=== PATIENT | female | born 1980 | race African-American/Black ===

== ENCOUNTER 2018-09-18 13:13 | Emergency (ER) | payer OTHER ==
[~2018-09-18] VITALS: Ht 165.1 cm; Wt 90.7 kg
--- OUTSIDE RECORDS SUMMARY | 2018-09-18 13:16 | XMS REPORT | Clinical Summary ---
Author Author [facility] Address Unknown Phone Unavailable Care Team Providers Care [facility] Pharmacy Technician Name Role Phone Sharpless PCP Allergies Comments Active Allergy Reactions Severity Noted Date Morphine Swelling 05/23/2014 Unknown reactions Sulfa (Sulfonamide 05/23/2014 Antibiotics) Medications No known medications Active Problems Problem Noted Date Research study patient 07/19/2016 Social History Date Tobacco Use Types Packs/Day Years Used Never Smoker Smokeless Tobacco: Never Used Alcohol Use Drinks/Week oz/Week Comments No Sex Assigned at Date Recorded Not on file Industry Job Start Date Occupation Not on file Not on file Not on file Travel End Travel History Travel Start No recent travel history available. Last Filed Vital Signs Not on file Plan of Treatment Not on file Results Not on fileafter 09/17/2017
--- OUTSIDE RECORDS SUMMARY | 2018-09-18 13:17 | XMS REPORT | Continuity of Care Document ---
Author Author [facility] Interface Address Unknown Phone Unavailable Problems Problem Status Onset Date Classification Date Reported Comments Source Z01.419 Active 03/12/2018 [facility] Discharge Diagnosis: Acute diarrhea 04/24/2017 04/27/2017 [facility] WEAKNESS Active 04/24/2017 [facility] Discharge Diagnosis: Chest pain at rest 10/14/2015 10/17/2015 [facility] CHEST PAIN Active 10/14/2015 [facility] DESIRED STERILIZATION Active 02/09/2015 [facility] LEAKING FLUID Active 12/23/2014 [facility] INCREASED BLOOD PRESSURES Active 12/22/2014 [facility] 6/2 ; 12/31/14 ; 39 WEEKS Active 12/22/2014 [facility] CTX Active 12/19/2014 [facility] SWELLING Active 12/16/2014 [facility] AMA Active 09/06/2014 [facility] ABDOMINAL PAIN, DECREASED MOVEMENT Active 09/06/2014 [facility] LOWER ABDOMINAL CRAMPS Active 05/21/2014 [facility] Discharge Diagnosis: , threatened 05/13/2014 05/16/2014 [facility] Discharge Diagnosis: Currently 05/13/2014 05/16/2014 [facility] Discharge Diagnosis: Abdominal pain in female patient 05/13/2014 05/16/2014 [facility] Discharge Diagnosis: Pelvic cramping 05/13/2014 05/16/2014 [facility] CRAMPS Active 05/12/2014 [facility] Discharge Diagnosis: Bacterial vaginitis 05/08/2014 05/11/2014 [facility] VAG DISCHARGE Active 05/08/2014 [facility] Discharge Diagnosis: Urinary tract infection 05/07/2014 05/10/2014 [facility] ABDOMINAL PAIN Active 05/07/2014 [facility] Resolved 09/25/2012 Problem 03/26/2018 [facility] Abdominal pain Resolved 02/24/2012 Problem 03/26/2018 [facility] HIGH BLOOD PRESSURE Active 10/06/1941 [facility] Chest pain Active Problem 03/26/2018 [facility] HTN - Hypertension Resolved Problem 03/26/2018 [facility] Gestational hypertension Active Problem 03/26/2018 [facility] Final: Spotting Complicating , Antepartum Condition or Complication 10/18/2014 [facility] Final: Other Current Conditions Classifiable Elsewhere, Complicating , Childbirth, or the [place], Antepartum Condition or Complication 10/18/2014 [facility] Final: Backache, Unspecified 10/18/2014 [facility] Final: Headache 10/18/2014 [facility] THREAT LABOR NEC-ANTEPAR Active [facility] Medications Medication Details Route Status Patient Instructions Ordering Provider Order Date Source meclizine 12.5 mg oral tablet 12.5 mg=1 tab, PO, TID, PRN Dizziness, X 10 day, # 30 tab, 0 Refill(s) Active 10/14/2015 [facility] Famotidine 20 MG Oral Tablet [Pepcid] 20 mg=1 tab, PO, BID, # 60 tab, 0 Refill(s) Active 10/14/2015 [facility] Aspirin 325 mg, Route: PO, Drug form: TAB, ONCE, Dosing Weight 81.818, kg, Priority: STAT, Start date: 10/14/15 11:12:00, Stop date: 10/14/15 11:12:00 Inactive 10/14/2015 [facility] GI cocktail 30 mL, Route: PO, Dosing Weight 81.818, kg, ONCE, STAT, Start date: 10/14/15 9:43:00, Stop date: 10/14/15 9:43:00 Inactive 10/14/2015 [facility] Oxycodone Hydrochloride 5 MG Oral Tablet 5 mg, Route: PO, Drug form: TAB, ONCE, Dosing Weight 81.818, kg, Start date: 03/05/15 11:19:00, Stop date: 03/05/15 11:19:00 Inactive 03/05/2015 [facility] ibuprofen 800 mg oral tablet 800 mg=1 tab, PO, Q8H, PRN Pain, Take with food, # 30 tab, 0 Refill(s)Special Instructions: Take with food Active 03/05/2015 [facility] Acetaminophen 300 MG / Codeine Phosphate 30 MG Oral Tablet [Tylenol with Codeine #3] 1 - 2 tab, PO, Q4H, PRN Pain, X 2 week, # 24 tab, 0 Refill(s) Active 03/05/2015 [facility] Ibuprofen 0 Refill(s) Active 03/05/2015 [facility] Metronidazole 500 MG Oral Tablet 500 mg=1 tab, PO, Q8H, # 30 tab, 0 Refill(s) Active 02/27/2015 [facility] Multivitamins oral tablet 1 tab, Route: PO, Drug Form: TAB, Dosing Weight 88.636, kg, Daily, Start date: 12/24/14 9:00:00, Duration: 30 day, Stop date: 01/22/15 9:00:00 No Longer Active 12/24/2014 [facility] ferrous sulfate 325 MG Oral Tablet 325 mg=1 tab, PO, TID, # 90 tab, 0 Refill(s) Active 12/24/2014 [facility] Docusate Sodium 100 MG Oral Capsule 100 mg=1 cap, PO, BID, Constipation, # 60 cap, 0 Refill(s) Active 12/24/2014 [facility] ibuprofen 800 mg oral tablet 800 mg=1 tab, PO, Q8H, Pain Score 6-10, # 30 tab, 0 Refill(s) Active 12/24/2014 [facility] Tramadol 50 mg, 1 tab, Route: PO, Drug form: TAB, Q4H, Dosing Weight 88.636, kg, PRN Pain Score 4-6, Start date: 12/23/14 22:43:00, Duration: 30 day, Stop date: 01/22/15 22:42:00Notes: Not to exceed 400mg/day. (Same As: Ultram) No Longer Active 12/24/2014 [facility] M-M-R II 0.5 mL, Route: SUB-Q, Drug Form: PDR/INJ, Dosing Weight 88.636, kg, ONCALL, Give only if patient rubella non-immune, Start date: 12/23/14 12:00:00, Duration: 1 doses or times, Stop date: 12/24/14 0:00:00Notes: (Same as: M-M-R II) (fvlafml-hbvjw-mntbgkg virus vaccine 0.5 ml INJ VL) GIVE PRIOR TO DISCHARGE No Longer Active 12/23/2014 [facility] Acetaminophen 325 MG / Hydrocodone Bitartrate 10 MG Oral Tablet 1 tab, Route: PO, Drug Form: TAB, Dosing Weight 88.636, kg, Q4H, PRN Pain Score 7-10, Start date: 12/23/14 11:23:00, Duration: 30 day, Stop date: 01/22/15 11:22:00Notes: Do not exceed 4gm/day of acetaminophen. (Same as: Okarche 325/10) Inactive 12/23/2014 [facility] Acetaminophen 325 MG / Hydrocodone Bitartrate 5 MG Oral Tablet 1 tab, Route: PO, Drug Form: TAB, Dosing Weight 88.636, kg, Q4H, PRN Pain Score 4-6, Start date: 12/23/14 11:23:00, Duration: 30 day, Stop date: 01/22/15 11:22:00Notes: (Same as: Okarche 325/5) Do not exceed 4gm/day of acetaminophen. Inactive 12/23/2014 [facility] Acetaminophen 650 mg, 2 tab, Route: PO, Drug form: TAB, Q4H, Dosing Weight 88.636, kg, PRN Headache 1-3, Start date: 12/23/14 11:23:00, Duration: 30 day, Stop date: 01/22/15 11:22:00Notes: Do not exceed 4 gm/day. (Same as: Tylenol) Inactive 12/23/2014 [facility] Ibuprofen 800 mg, 1 tab, Route: PO, Drug form: TAB, Q8H, Dosing Weight 88.636, kg, PRN Pain Score 6-10, Start date: 12/23/14 11:23:00, Duration: 30 day, Stop date: 01/22/15 11:22:00Notes: (Same as: Motrin) "Do Not Crush" Take with food. No Longer Active 12/23/2014 [facility] Lactated Ringers IV 1,000 mL 1,000 mL, Rate: 100 ml/hr, Infuse over: 10 hr, Route: IV, Dosing Weight 88.636 kg, Total Volume: 1,000, Start date: 12/23/14 11:23:00, Duration: 30 day, Stop date: 01/22/15 11:22:00 No Longer Active 12/23/2014 [facility] Oxytocin 0.03 UNT/ML Injectable Solution 30 unit, 500 mL, Rate: 42 ml/hr, Infuse over: 11.9 hr, Dosing Weight 88.636, kg, Route: IV, Total Volume: 500 mL, Start date: 12/23/14 11:23:00, Duration: 2 doses or times, Stop date: 12/24/14 11:10:00, Replace Every: 11.9 hrNotes: (Same as: OXYTOCIN- D5LR) No Longer Active 12/23/2014 [facility] Methylergonovine 0.2 mg, 1 mL, Route: IM, Drug form: INJ, PRN, Dosing Weight 88.636, kg, PRN Other -See Comment, Start date: 12/23/14 11:23:00, Duration: 30 day, Stop date: 01/22/15 12:22:00Notes: (Same as:Methergine) No Longer Active 12/23/2014 [facility] Benzocaine 200 MG/ML Topical [place] [Dermoplast] 1 spray, Route: TOP, PRN, Drug form: SPRY, PRN Irritation, Start date: 12/23/14 11:23:00, Duration: 30 day, Stop date: 01/22/15 12:22:00Notes: (Same As: Dermoplast) FOR EXTERNAL USE ONLY No Longer Active 12/23/2014 [facility] zolpidem 5 mg, 1 tab, Route: PO, Drug form: TAB, Bedtime, Dosing Weight 88.636, kg, PRN Sleep, Start date: 12/23/14 11:23:00, Duration: 30 day, Stop date: 01/22/15 11:22:00Notes: (Same As: Ambien) No Longer Active 12/23/2014 [facility] Bisacodyl 15 mg, 3 tab, Route: PO, Drug form: ECTAB, Daily, Dosing Weight 88.636, kg, PRN Other -See Comment, Start date: 12/23/14 11:23:00, Duration: 30 day, Stop date: 01/22/15 11:22:00Notes: (Same As: Dulco lax, Correctol) (Do Not Crush) "Do Not Crush" No Longer Active 12/23/2014 [facility] lanolin topical 1 appl, Route: TOP, PRN, Drug form: OINT, PRN Other -See Comment, Start date: 12/23/14 11:23:00, Duration: 30 day, Stop date: 01/22/15 12:22:00Notes: (Same as:Lanolin) No Longer Active 12/23/2014 [facility] Docusate 100 mg, 1 cap, Route: PO, Drug form: CAP, BID, Dosing Weight 88.636, kg, PRN Constipation, Start date: 12/23/14 11:23:00, Duration: 30 day, Stop date: 01/22/15 11:22:00Notes: (Same as: Colace) (Do Not Crush) No Longer Active 12/23/2014 [facility] Ondansetron 4 mg, 2 mL, Route: IVP, Drug form: INJ, Q8H, Dosing Weight 88.636, kg, PRN Nausea & Vomiting, Start date: 12/23/14 11:23:00, Duration: 30 day, Stop date: 01/22/15 11:22:00Notes: (Same as: Zofran) No Longer Active 12/23/2014 [facility] Ofirmev 1,000 mg, 100 mL, Route: IV, Drug form: INJ, Q6H, Dosing Weight 88.636, kg, for > or=50 kg, Priority: STAT, Start date: 12/23/14 8:13:00, Duration: 30 day, Stop date: 01/22/15 6:00:00Notes: Infuse over 15 minutes Do not exceed 4gm/day of acetaminophen Inactive 12/23/2014 [facility] Ofirmev 1,000 mg, Route: IV, Drug form: INJ, Q6H, Dosing Weight 88.636, kg, PRN Pain Score 7-10, for > or=50 kg, Start date: 12/23/14 8:12:00, Duration: 30 day, Stop date: 01/22/15 8:11:00 Inactive 12/23/2014 [facility] Carboprost 250 microgram, 1 mL, Route: IM, Drug form: INJ, ONCALL, Dosing Weight 88.636, kg, Start date: 12/23/14 2:00:00, Duration: 30 day, Stop date: 01/22/15 2:59:00Notes: (Same As: Hemabate) Inactive 12/23/2014 [facility] Citric Acid / sodium citrate 30 mL, Route: PO, Drug Form: SOLN, Dosing Weight 88.636, kg, ONCALL, Start date: 12/23/14 2:00:00, Duration: 30 day, Stop date: 01/22/15 2:59:00Notes: (Same As: Bicitra, Cytra-2) Sodium citrate-citric acid (500-334 mg/5 mL): 1 mL contains sodium 1 mEq/mL and bicarbonate 1 mEq/mL Inactive 12/23/2014 [facility] Methylergonovine 0.2 mg, 1 mL, Route: IM, Drug form: INJ, ONCALL, Dosing Weight 88.636, kg, Start date: 12/23/14 2:00:00, Duration: 30 day, Stop date: 01/22/15 2:59:00Notes: (Same as:Methergine) Inactive 12/23/2014 [facility] Misoprostol 1,000 microgram, 5 tab, Route: SD, Drug form: TAB, ONCALL, Dosing Weight 88.636, kg, Start date: 12/23/14 2:00:00, Duration: 1 doses or timesNotes: (Same as:Cytotec) Take with food Inactive 12/23/2014 [facility] Famotidine 20 mg, 2 mL, Route: IVP, Drug form: INJ, ONCALL, Dosing Weight 88.636, kg, Start date: 12/23/14 2:00:00, Duration: 30 day, Stop date: 01/22/15 2:59:00Notes: (Same as: Pepcid) Can be dilute in 5-10cc NS IVP: Slow IV push over at least 2 minutes. Inactive 12/23/2014 [facility] Oxytocin 0.03 UNT/ML Injectable Solution 30 unit, 500 mL, Rate: Titrate, Dosing Weight 88.636, kg, Route: IV, Total Volume: 500 mL, Start date: 12/23/14 1:03:00, Duration: 2 day, Stop date: 12/25/14 1:02:00, Replace Every: 24 hrNotes: (Same as: OXYTOCIN-D5LR) Inactive 12/23/2014 [facility] Calcium Chloride 0.0014 MEQ/ML / Potassium Chloride 0.004 MEQ/ML / Sodium Chloride 0.103 MEQ/ML / Sodium Lactate 0.028 MEQ/ML Injectable Solution 1,000 mL, 1,000 ml/hr, Infuse Over: 1 hr, Route: IV, 1,000, Drug form: INJ, ONCE, Dosing Weight 88.636 kg, Start date: 12/23/14 1:03:00, Stop date: 12/23/14 1:03:00, Bolus for regional anesthesia per unit protocol Inactive 12/23/2014 [facility] Lactated Ringers IV 1,000 mL 1,000 mL, Rate: 125 ml/hr, Infuse over: 8 hr, Route: IV, Dosing Weight 88.636 kg, Total Volume: 1,000, Start date: 12/23/14 1:03:00, Duration: 30 day, Stop date: 01/22/15 1:02:00 Inactive 12/23/2014 [facility] Lidocaine Hydrochloride 10 MG/ML Injectable Solution 0.25 mL, Route: INTRADERM, Drug Form: INJ, Dosing Weight 88.636, kg, PRN, PRN Other -See Comment, Start date: 12/23/14 1:03:00, Duration: 30 day, Stop date: 01/22/15 2:02:00Notes: (Same as: Xylocaine) Inactive 12/23/2014 [facility] Terbutaline 0.25 mg, 0.25 mL, Route: SUB-Q, Drug form: INJ, PRN, Dosing Weight 88.636, kg, PRN Other -See Comment, Start date: 12/23/14 1:03:00, Duration: 1 doses or times, Stop date: Limited # of timesNotes: DO NOT USE IN TRACK OILER AREA (Same As: Brethine) Inactive 12/23/2014 [facility] Ondansetron 4 mg, 2 mL, Route: IVP, Drug form: INJ, Q8H, Dosing Weight 88.636, kg, PRN Nausea & Vomiting, Start date: 12/23/14 1:03:00, Duration: 30 day, Stop date: 01/22/15 1:02:00Notes: (Same as: Zofran) Inactive 12/23/2014 [facility] Butorphanol 2 mg, 1 mL, Route: IVP, Drug form: INJ, Q2H, Dosing Weight 88.636, kg, PRN Pain Score 6-10, Start date: 12/23/14 1:03:00, Duration: 30 day, Stop date: 01/22/15 1:02:00Notes: (Same As: Stadol) Inactive 12/23/2014 [facility] 1 oral capsule 0 Refill(s) Active 12/20/2014 [facility] Tylenol 1,000 mg, PO, PRN, 0 Refill(s) Inactive 12/16/2014 [facility] Nitrofurantoin 100 MG Oral Capsule [Macrobid] 100 mg=1 cap, PO, BID, # 14 cap, 0 Refill(s) Active 10/15/2014 [facility] LR IV 1,000 mL 1,000 mL, Rate: 125 ml/hr, Infuse over: 8 hr, Route: IV, Dosing Weight 127.273 kg, Total Volume: 1,000, Start date: 09/06/14 18:33:00, Duration: 30 day, Stop date: 10/06/14 18:32:00 Inactive 09/06/2014 [facility] 1 oral capsule 0 Refill(s) Active 09/06/2014 [facility] Promethazine Hydrochloride 25 MG Oral Tablet [Phenergan] 25 mg=1 tab, PO, Q6H, Nausea, # 30 tab, 0 Refill(s) Active 05/13/2014 [facility] Dicyclomine Hydrochloride 20 MG Oral Tablet [Bentyl] 20 mg=1 tab, PO, QID, # 30 tab, 0 Refill(s) Active 05/13/2014 [facility] Promethazine 25 mg, Route: IVPB, ONCE, Dosing Weight 75, kg, Priority: STAT, Start date: 05/13/14 0:37:00, Stop date: 05/13/14 0:37:00 Inactive 05/13/2014 [facility] Dicyclomine 20 mg, Route: IM, ONCE, Dosing Weight 75, kg, Priority: STAT, Start date: 05/13/14 0:36:00, Stop date: 05/13/14 0:36:00 Inactive 05/13/2014 [facility] Metronidazole 500 MG Oral Tablet [Flagyl] 500 mg=1 tab, PO, Q12H, # 14 tab, 0 Refill(s) Active 05/08/2014 [facility] Zofran ODT 4 mg, Route: PO, Drug form: TABDIS, ONCE, Dosing Weight 75, kg, Priority: STAT, Start date: 05/08/14 14:21:00, Stop date: 05/08/14 14:21:00 Inactive 05/08/2014 [facility] Acetaminophen 325 MG / Hydrocodone Bitartrate 5 MG Oral Tablet [Okarche 5/325] 1 tab, Route: PO, Dosing Weight 75, kg, ONCE, Start date: 05/08/14 14:21:00, Stop date: 05/08/14 14:21:00 Inactive 05/08/2014 [facility] Ondansetron 4 MG Disintegrating Tablet [Zofran] 4 mg=1 tab, PO, BID, Nausea and Vomiting, Dissolve tab under tongue, # 10 tab, 0 Refill(s)Special Instructions: Dissolve tab under tongue Active 05/07/2014 [facility] cetirizine hydrochloride 10 MG Oral Tablet [Zyrtec] 10 mg=1 tab, PO, Daily, # 10 tab, 0 Refill(s) Active 05/07/2014 [facility] Nitrofurantoin 100 MG Oral Capsule [Macrobid] 100 mg=1 cap, PO, BID, # 14 tab, 0 Refill(s) Active 05/07/2014 [facility] Benadryl 25 mg, Route: IVP, ONCE, Dosing Weight 75, kg, Priority: STAT, Start date: 05/07/14 11:38:00, Stop date: 05/07/14 11:38:00 Inactive 05/07/2014 [facility] Pepcid 20 mg, 2 mL, Route: IV, Drug form: INJ, ONCE, Dosing Weight 75, kg, Start date: 05/07/14 11:38:00, Stop date: 05/07/14 11:38:00Notes: (Same as: Pepcid) Can be dilute in 5-10cc NS IVP: Slow IV push o liam at least 2 minutes. Inactive 05/07/2014 [facility] Famotidine 20 mg, Route: IV, ONCE, Dosing Weight 75, kg, Priority: STAT, Start date: 05/07/14 11:34:00, Stop date: 05/07/14 11:34:00 Inactive 05/07/2014 [facility] Benadryl 25 mg, 0.5 mL, Route: IVP, Drug form: INJ, ONCE, Dosing Weight 75, kg, PRN Allergic reaction, Start date: 05/07/14 11:34:00Notes: (Same as: Benadryl) Inactive 05/07/2014 [facility] Morphine 4 mg, Route: IVP, ONCE, Dosing Weight 75, kg, Priority: STAT, Start date: 05/07/14 9:39:00, Stop date: 05/07/14 9:39:00 Inactive 05/07/2014 [facility] Zofran 4 mg, 2 mL, Route: IVP, Drug form: INJ, ONCE, Dosing Weight 75, kg, Priority: STAT, Start date: 05/07/14 8:51:00, Stop date: 05/07/14 8:51:00Notes: (Same as: Zofran) Inactive 05/07/2014 [facility] Sodium Chloride 0.154 MEQ/ML Injectable Solution 1,000 mL, 1,000 ml/hr, Infuse Over: 1 hr, Route: IV, 1,000, Drug form: INJ, ONCE, Priority: STAT, Dosing Weight 75 kg, Start date: 05/07/14 8:51:00, Duration: 1 doses or times, Stop date: 05/07/14 8:51:00 Inactive 05/07/2014 [facility] Allergies, Adverse Reactions, Alerts Substance Category Reaction Severity Reaction type Status Date Reported Comments Source morphine Assertion Drug allergy Active [facility] sulfa drugs Assertion Drug allergy Active [facility] Immunizations Immunization Date Given Site Status Last Updated Comments Source diphtheria/pertussis, acel/tetanus adult 12/25/2014 Right Deltoid completed [facility] Results Order Name Results Value Reference Range Date Interpretation Comments Source Breast Mammo Scrn TOBY incl CAD MA Breast Mammo Scrn TOBY incl CAD MA BILATERAL FIRST EVER DIGITAL SCREENING MAMMOGRAM WITH CAD: 03/23/2018 CLINICAL: /Routine. Current study was evaluated with a Computer Aided Detection (CAD) system. COMPARISON:There are no comparison films available as this is the patient's baseline mammogram. TECHNIQUE: Mammographic views were obtained using digital acquisition. Bookmate[employer] Version 1.3 was utilized for computer aided detection. FINDINGS: The tissue of both breasts is heterogeneously dense, which could obscure detection of small masses. No significant masses, calcifications, or other findings are seen in either breast. IMPRESSION: NEGATIVE RECOMMENDATION:There is no mammographic evidence of malignancy. A 1 year screening mammogram is recommended.(03/24/2019) This exam was interpreted at [id number] for [facility] [place][note 2]. Gulshan Jang M.D. jt/penrad:03/26/2018 09:52:39 Deputy Assessor(s): Daly Leigh, RT(R)(M), [facility] letter sent: BI-RADS 1/2 Mammogram BI-RADS: 1 Negative 03/23/2018 - - Read by: Gulshan Jang MD Dictated Date/time: 03/26/18 09:52 Electronically Signed by: Gulshan Jang MD 03/26/18 09:52 FINAL REPORT [facility] URINE AND STOOL UA Leuk Est Trace *ABN* (04/24/17 5:20 PM) Negative 04/24/2017 [facility] URINE AND STOOL UA Urobilinogen 0.2 EU/dL 0.1 - 1.0 04/24/2017 [facility] URINE AND STOOL UA Bili Negative *NA* (04/24/17 5:20 PM) Negative 04/24/2017 [facility] URINE AND STOOL UA Blood Negative (04/24/17 5:20 PM) Negative 04/24/2017 [facility] URINE AND STOOL UA Nitrite Negative (04/24/17 5:20 PM) Negative 04/24/2017 [facility] URINE AND STOOL UA Glucose Negative (04/24/17 5:20 PM) Negative 04/24/2017 [facility] URINE AND STOOL UA Protein Negative (04/24/17 5:20 PM) Negative 04/24/2017 [facility] URINE AND STOOL UA pH 6.0 5.0 - 8.0 04/24/2017 [facility] URINE AND STOOL UA Spec Grav 1.015 <=1.030 04/24/2017 [facility] URINE AND STOOL UA Turbidity Clear (04/24/17 5:20 PM) Clear 04/24/2017 [facility] URINE AND STOOL UA Color Yellow *NA* (04/24/17 5:20 PM) Yellow 04/24/2017 [facility] URINE AND STOOL UA Ketones Negative *NA* (04/24/17 5:20 PM) Negative 04/24/2017 [facility] URINE AND STOOL UA Amorph [place] Occasional /HPF None Seen /HPF 04/24/2017 [facility] URINE AND STOOL UA Bacteria Few /HPF None Seen /HPF 04/24/2017 [facility] URINE AND STOOL UA RBC None Seen (04/24/17 5:20 PM) 0 - 2 04/24/2017 [facility] URINE AND STOOL UA WBC 3-5 /HPF None Seen /HPF 04/24/2017 [facility] URINE AND STOOL UA Sq Epi Few /LPF Few /LPF 04/24/2017 [facility] URINE CHEM U Preg Negative (04/24/17 5:20 PM) Negative 04/24/2017 [facility] CHEM PANEL B/C Ratio 7 6 - 25 04/24/2017 [facility] CHEM PANEL AGAP 13.8 meq/L 10.0 - 20.0 04/24/2017 [facility] CHEM PANEL Globulin 4.2 g/dL 2.7 - 4.2 04/24/2017 [facility] CHEM PANEL A/G Ratio 0.9 0.7 - 1.6 04/24/2017 [facility] CHEM PANEL eGFR 101 mL/min/1.73m2 04/24/2017 Result Comment: The eGFR is calculated using the CKD-EPI formula. In most young, healthy individuals the eGFR will be >90 mL/min/1.73m2. The eGFR declines with age. An eGFR of 60-89 may be normal in some populations, particularly the elderly, for whom the CKD-EPI formula has not been extensively validated. Use of the eGFR is not recommended in the following populations: Individuals with unstable creatinine concentrations, including patients and those with serious co-morbid conditions. Patients with extremes in muscle mass or diet. The data above are obtained from the National Kidney Disease Education Program (NKDEP) which additionally recommends that when the eGFR is used in patients with extremes of body mass index for purposes of drug dosing, the eGFR should be multiplied by the estimated BMI. [facility] CHEM PANEL Sodium Lvl 138 meq/L 135 - 145 04/24/2017 [facility] CHEM PANEL Chloride Lvl 104 meq/L 95 - 109 04/24/2017 [facility] CHEM PANEL Potassium Lvl 3.8 meq/L 3.5 - 5.1 04/24/2017 [facility] CHEM PANEL Glucose Lvl 90 mg/dL 70 - 99 04/24/2017 [facility] CHEM PANEL Creatinine Lvl 0.84 mg/dL 0.50 - 1.40 04/24/2017 [facility] CHEM PANEL BUN 6 mg/dL 7 - 22 04/24/2017 [facility] CHEM PANEL CO2 24 meq/L 24 - 32 04/24/2017 [facility] CHEM PANEL Calcium Lvl 8.7 mg/dL 8.5 - 10.5 04/24/2017 [facility] CHEM PANEL Bili Total 0.5 mg/dL 0.2 - 1.3 04/24/2017 [facility] CHEM PANEL AST 13 unit/L 0 - 37 04/24/2017 [facility] CHEM PANEL Alk Phos 62 unit/L 39 - 136 04/24/2017 [facility] CHEM PANEL Total Protein 8.0 g/dL 6.4 - 8.4 04/24/2017 [facility] CHEM PANEL Albumin Lvl 3.8 g/dL 3.5 - 5.0 04/24/2017 [facility] CHEM PANEL ALT 13 unit/L 0 - 65 04/24/2017 [facility] HEMATOLOGY Monocytes 6.7 % 2.0 - 12.0 04/24/2017 [facility] HEMATOLOGY Eosinophils 1.0 % 0.0 - 4.0 04/24/2017 [facility] HEMATOLOGY Segs 51.0 % 45.0 - 75.0 04/24/2017 [facility] HEMATOLOGY Lymphocytes 40.4 % 20.0 - 40.0 04/24/2017 [facility] HEMATOLOGY Monocytes # 0.4 K/CMM 0.0 - 0.8 04/24/2017 [facility] HEMATOLOGY Basophils 0.9 % 0.0 - 1.0 04/24/2017 [facility] HEMATOLOGY Eosinophils # 0.1 K/CMM 0.0 - 0.5 04/24/2017 [facility] HEMATOLOGY Microcyte 2+ *ABN* (04/24/17 3:37 PM) None Seen 04/24/2017 [facility] HEMATOLOGY Lymphocytes # 2.2 K/CMM 1.0 - 5.5 04/24/2017 [facility] HEMATOLOGY Segs-Bands # 2.8 K/CMM 1.5 - 8.1 04/24/2017 [facility] HEMATOLOGY MPV 7.2 fL 7.4 - 10.4 04/24/2017 [facility] HEMATOLOGY MCHC 33.7 g/dL 32.0 - 36.0 04/24/2017 [facility] HEMATOLOGY RDW 15.0 % 11.5 - 14.5 04/24/2017 [facility] HEMATOLOGY Platelet 345 K/CMM 133 - 450 04/24/2017 [facility] HEMATOLOGY MCV 73.5 fL 80.0 - 98.0 04/24/2017 [facility] HEMATOLOGY MCH 24.8 pg 27.0 - 31.0 04/24/2017 [facility] HEMATOLOGY Hgb 12.9 g/dL 12.0 - 16.0 04/24/2017 [facility] HEMATOLOGY Hct 38.2 % 36.0 - 48.0 04/24/2017 [facility] HEMATOLOGY WBC 5.5 K/CMM 3.7 - 10.4 04/24/2017 [facility] HEMATOLOGY RBC 5.20 M/CMM 4.20 - 5.40 04/24/2017 [facility] CARDIAC ENZYMES Troponin-I null 0.00 - 0.40 10/14/2015 [facility] CARDIAC ENZYMES Troponin-I null 0.00 - 0.40 10/14/2015 [facility] CHEM PANEL eGFR 98 mL/min/1.73m2 10/14/2015 Result Comment: The eGFR is calculated using the CKD-EPI formula. In most young, healthy individuals the eGFR will be >90 mL/min/1.73m2. The eGFR declines with age. An eGFR of 60-89 may be normal in some populations, particularly the elderly, for whom the CKD-EPI formula has not been extensively validated. Use of the eGFR is not recommended in the following populations: Individuals with unstable creatinine concentrations, including patients and those with serious co-morbid conditions. Patients with extremes in muscle mass or diet. The data above are obtained from the National Kidney Disease Education Program (NKDEP) which additionally recommends that when the eGFR is used in patients with extremes of body mass index for purposes of drug dosing, the eGFR should be multiplied by the estimated BMI. [facility] CHEM PANEL Potassium Lvl 3.8 meq/L 3.5 - 5.1 10/14/2015 [facility] CHEM PANEL CO2 27 meq/L 24 - 32 10/14/2015 [facility] CHEM PANEL Chloride Lvl 104 meq/L 95 - 109 10/14/2015 [facility] CHEM PANEL Calcium Lvl 9.1 mg/dL 8.5 - 10.5 10/14/2015 [facility] CHEM PANEL AGAP 10.8 meq/L 10.0 - 20.0 10/14/2015 [facility] CHEM PANEL BUN 10 mg/dL 7 - 22 10/14/2015 [facility] CHEM PANEL Glucose Lvl 95 mg/dL 70 - 99 10/14/2015 [facility] CHEM PANEL Creatinine Lvl 0.87 mg/dL 0.50 - 1.40 10/14/2015 [facility] CHEM PANEL Sodium Lvl 138 meq/L 135 - 145 10/14/2015 [facility] Chest 2 views DX Chest 2 views DX EXAM: XR CHEST 2 VIEWS DATE: 10/14/2015 at 0900 hours INDICATION: Shortness of Breath COMPARISON: Chest radiograph 04/28/2013 TECHNIQUE: Frontal and lateral chest radiographs DISCUSSION: No pulmonary or pleural based abnormality is identified. Pulmonary vascularity is normal. The cardiomediastinal silhouette is normal. No acute bony abnormality is identified. IMPRESSION: No acute cardiopulmonary abnormality identified. 10/14/2015 - - This report was dictated by a [employer] Instructor/Fellow. I have personally reviewed the images as well as the Resident's interpretation and agree with the findings. Read by: Eran Haley MD Resident: Eran Haley MD Dictated Date/time: 10/14/15 09:05 Electronically Signed by: Susy Trinidad MD 10/14/15 09:40 FINAL REPORT [facility] BLOOD BANK RESULTS Antibody Scrn Negative (03/05/15 6:58 AM) 03/05/2015 [facility] BLOOD BANK RESULTS ABO/Rh B POS 03/05/2015 [facility] HEMATOLOGY Monocytes # 0.2 K/CMM 0.0 - 0.8 03/05/2015 [facility] HEMATOLOGY Lymphocytes # 1.9 K/CMM 1.0 - 5.5 03/05/2015 [facility] HEMATOLOGY Basophils # 0.0 K/CMM 0.0 - 0.2 03/05/2015 [facility] HEMATOLOGY Basophils 0.7 % 0.0 - 1.0 03/05/2015 [facility] HEMATOLOGY Segs-Bands # 2.7 K/CMM 1.5 - 8.1 03/05/2015 [facility] HEMATOLOGY Eosinophils 1.1 % 0.0 - 4.0 03/05/2015 [facility] HEMATOLOGY Lymphocytes 39.6 % 20.0 - 40.0 03/05/2015 [facility] HEMATOLOGY Monocytes 3.6 % 2.0 - 12.0 03/05/2015 [facility] HEMATOLOGY Segs 55.0 % 45.0 - 75.0 03/05/2015 [facility] HEMATOLOGY Eosinophils # 0.1 K/CMM 0.0 - 0.5 03/05/2015 [facility] HEMATOLOGY MCHC 33.3 g/dL 32.0 - 36.0 03/05/2015 [facility] HEMATOLOGY RDW 12.6 % 11.5 - 14.5 03/05/2015 [facility] HEMATOLOGY Hct 41.1 % 36.0 - 48.0 03/05/2015 [facility] HEMATOLOGY MCV 85.1 fL 80.0 - 98.0 03/05/2015 [facility] HEMATOLOGY MPV 7.2 fL 7.4 - 10.4 03/05/2015 [facility] HEMATOLOGY Platelet 292 K/CMM 133 - 450 03/05/2015 [facility] HEMATOLOGY MCH 28.3 pg 27.0 - 31.0 03/05/2015 [facility] HEMATOLOGY Hgb 13.7 g/dL 12.0 - 16.0 03/05/2015 [facility] HEMATOLOGY RBC 4.83 M/CMM 4.20 - 5.40 03/05/2015 [facility] HEMATOLOGY WBC 4.9 K/CMM 3.7 - 10.4 03/05/2015 [facility] URINE CHEM U Preg Negative (03/05/15 6:58 AM) Negative 03/05/2015 [facility] BLOOD BANK RESULTS Antibody Scrn Negative (12/23/14 1:47 AM) 12/23/2014 [facility] BLOOD BANK RESULTS ABO/Rh B POS 12/23/2014 [facility] HEMATOLOGY Monocytes # 0.6 K/CMM 0.0 - 0.8 12/23/2014 [facility] HEMATOLOGY Lymphocytes # 2.3 K/CMM 1.0 - 5.5 12/23/2014 [facility] HEMATOLOGY Segs-Bands # 6.9 K/CMM 1.5 - 8.1 12/23/2014 [facility] HEMATOLOGY Basophils 0.4 % 0.0 - 1.0 12/23/2014 [facility] HEMATOLOGY Eosinophils 0.3 % 0.0 - 4.0 12/23/2014 [facility] HEMATOLOGY Monocytes 5.8 % 2.0 - 12.0 12/23/2014 [facility] HEMATOLOGY Lymphocytes 23.3 % 20.0 - 40.0 12/23/2014 [facility] HEMATOLOGY Segs 70.2 % 45.0 - 75.0 12/23/2014 [facility] HEMATOLOGY RDW 14.7 % 11.5 - 14.5 12/23/2014 [facility] HEMATOLOGY Platelet 294 K/CMM 133 - 450 12/23/2014 [facility] HEMATOLOGY MPV 7.6 fL 7.4 - 10.4 12/23/2014 [facility] HEMATOLOGY MCHC 34.2 g/dL 32.0 - 36.0 12/23/2014 [facility] HEMATOLOGY RBC 4.14 M/CMM 4.20 - 5.40 12/23/2014 [facility] HEMATOLOGY MCV 85.4 fL 80.0 - 98.0 12/23/2014 [facility] HEMATOLOGY MCH 29.2 pg 27.0 - 31.0 12/23/2014 [facility] HEMATOLOGY Hgb 12.1 g/dL 12.0 - 16.0 12/23/2014 [facility] HEMATOLOGY Hct 35.3 % 36.0 - 48.0 12/23/2014 [facility] HEMATOLOGY WBC 9.8 K/CMM 3.7 - 10.4 12/23/2014 [facility] IMMUNOLOGY Rubella IgG 221.2 [iU]/mL >=10.0 IU/mL 12/23/2014 1Interpretive Data: Reference Range: Immune >=10 IU/mL [facility] IMMUNOLOGY HIV. Negative *NA* (12/23/14 1:47 AM) Negative 12/23/2014 [facility] IMMUNOLOGY Hep Bs Ag Negative *NA* (12/23/14 1:47 AM) Negative 12/23/2014 [facility] IMMUNOLOGY Treponemal Scr Non Reactive *NA* (12/23/14 1:47 AM) Non Reactive 12/23/2014 [facility] URINE AND STOOL UA Urobilinogen <=1.0 mg/dL 0.1 - 1.0 09/06/2014 [facility] URINE AND STOOL UA WBC 1 /HPF 0 - 5 09/06/2014 [facility] URINE AND STOOL UA Mucus Few /LPF None Seen /LPF 09/06/2014 [facility] URINE AND STOOL UA Blood Negative (09/06/14 5:49 PM) Negative 09/06/2014 [facility] URINE AND STOOL UA Sq Epi Few /LPF Few /LPF 09/06/2014 [facility] URINE AND STOOL UA Nitrite Negative (09/06/14 5:49 PM) Negative 09/06/2014 [facility] URINE AND STOOL UA Bili Negative *NA* (09/06/14 5:49 PM) Negative 09/06/2014 [facility] URINE AND STOOL UA Leuk Est Negative (09/06/14 5:49 PM) Negative 09/06/2014 [facility] URINE AND STOOL UA Protein Negative mg/dL Negative mg/dL 09/06/2014 [facility] URINE AND STOOL UA Ketones 20 mg/dL Negative mg/dL 09/06/2014 [facility] URINE AND STOOL UA Glucose Negative mg/dL Negative mg/dL 09/06/2014 [facility] URINE AND STOOL UA Spec Grav 1.012 <=1.030 09/06/2014 [facility] URINE AND STOOL UA pH 5.0 5.0 - 8.0 09/06/2014 [facility] URINE AND STOOL UA Color Yellow *NA* (09/06/14 5:49 PM) Yellow 09/06/2014 [facility] URINE AND STOOL UA Turbidity Clear (09/06/14 5:49 PM) Clear 09/06/2014 [facility] CHEM PANEL eGFR 128 mL/min/1.73m2 05/13/2014 1Result Comment: The eGFR is calculated using the CKD-EPI formula. In most young, healthy individuals the eGFR will be >90 mL/min/1.73m2. The eGFR declines with age. An eGFR of 60-89 may be normal in some populations, particularly the elderly, for whom the CKD-EPI formula has not been extensively validated. Use of the eGFR is not recommended in the following populations: Individuals with unstable creatinine concentrations, including patients and those with serious co-morbid conditions. Patients with extremes in muscle mass or diet. The data above are obtained from the National Kidney Disease Education Program (NKDEP) which additionally recommends that when the eGFR is used in patients with extremes of body mass index for purposes of drug dosing, the eGFR should be multiplied by the estimated BMI. [facility] CHEM PANEL A/G Ratio 0.9 0.7 - 1.6 05/13/2014 [facility] CHEM PANEL AST 9 unit/L 0 - 37 05/13/2014 [facility] CHEM PANEL Bili Total 0.1 mg/dL 0.2 - 1.3 05/13/2014 [facility] CHEM PANEL B/C Ratio 14 6 - 25 05/13/2014 [facility] CHEM PANEL Globulin 3.5 g/dL 2.0 - 4.0 05/13/2014 [facility] CHEM PANEL AGAP 8.4 meq/L 10.0 - 20.0 05/13/2014 [facility] CHEM PANEL Total Protein 6.8 g/dL 6.4 - 8.4 05/13/2014 [facility] CHEM PANEL Alk Phos 62 unit/L 39 - 136 05/13/2014 [facility] CHEM PANEL Albumin Lvl 3.3 g/dL 3.5 - 5.0 05/13/2014 [facility] CHEM PANEL ALT 12 unit/L 0 - 65 05/13/2014 [facility] CHEM PANEL Glucose Lvl 91 mg/dL 70 - 99 05/13/2014 2Interpretive Data: Adult reference range values reflect the clinical guidelines of the [place] [employer]. [facility] CHEM PANEL CO2 26 meq/L 24 - 32 05/13/2014 [facility] CHEM PANEL Calcium Lvl 8.4 mg/dL 8.5 - 10.5 05/13/2014 [facility] CHEM PANEL Potassium Lvl 3.4 meq/L 3.5 - 5.1 05/13/2014 [facility] CHEM PANEL Sodium Lvl 137 meq/L 135 - 145 05/13/2014 [facility] CHEM PANEL Creatinine Lvl 0.7 mg/dL 0.5 - 1.4 05/13/2014 [facility] CHEM PANEL BUN 10 mg/dL 7 - 22 05/13/2014 [facility] CHEM PANEL Chloride Lvl 106 meq/L 95 - 109 05/13/2014 [facility] ENDOCRINOLOGY S Preg Positive *NA* (05/12/14 11:05 PM) Negative 05/13/2014 [facility] Microcyte 1+ *ABN* (05/12/14 11:05 PM) None Seen 05/13/2014 [facility] Monocytes # 0.4 K/CMM 0.0 - 0.8 05/13/2014 [facility] Segs-Bands # 3.6 K/CMM 1.5 - 8.1 05/13/2014 [facility] Lymphocytes # 3.0 K/CMM 1.0 - 5.5 05/13/2014 [facility] Basophils # 0.1 K/CMM 0.0 - 0.2 05/13/2014 [facility] Eosinophils # 0.1 K/CMM 0.0 - 0.5 05/13/2014 [facility] Segs 50.2 % 45.0 - 75.0 05/13/2014 [facility] Lymphocytes 41.5 % 20.0 - 40.0 05/13/2014 [facility] Monocytes 6.3 % 2.0 - 12.0 05/13/2014 [facility] Eosinophils 1.0 % 0.0 - 4.0 05/13/2014 [facility] Basophils 1.0 % 0.0 - 1.0 05/13/2014 [facility] MCHC 34.1 g/dL 32.0 - 36.0 05/13/2014 [facility] Platelet 317 K/CMM 133 - 450 05/13/2014 [facility] RDW 15.6 % 11.5 - 14.5 05/13/2014 [facility] MCH 25.0 pg 27.0 - 31.0 05/13/2014 [facility] Hct 31.7 % 36.0 - 48.0 05/13/2014 [facility] MCV 73.3 fL 81.0 - 99.0 05/13/2014 [facility] MPV 7.4 fL 7.4 - 10.4 05/13/2014 [facility] Hgb 10.8 g/dL 12.0 - 16.0 05/13/2014 [facility] RBC 4.32 M/CMM 4.20 - 5.40 05/13/2014 [facility] WBC 7.1 K/CMM 3.7 - 10.4 05/13/2014 [facility] URINE AND STOOL Micro? Performed (05/12/14 11:05 PM) 05/13/2014 [facility] URINE AND STOOL UA Leuk Est Trace *ABN* (05/12/14 11:05 PM) Negative 05/13/2014 [facility] URINE AND STOOL UA Nitrite Negative (05/12/14 11:05 PM) Negative 05/13/2014 [facility] URINE AND STOOL UA Urobilinogen 0.2 EU/dL 0.1 - 1.0 05/13/2014 [facility] URINE AND STOOL UA Bacteria Occasional /HPF None Seen /HPF 05/13/2014 [facility] URINE AND STOOL UA RBC None Seen (05/12/14 11:05 PM) 0 - 2 05/13/2014 [facility] URINE AND STOOL UA WBC 0-2 /HPF None Seen /HPF 05/13/2014 [facility] URINE AND STOOL UA Sq Epi Occasional /LPF Few /LPF 05/13/2014 [facility] URINE AND STOOL UA Blood Negative (05/12/14 11:05 PM) Negative 05/13/2014 [facility] URINE AND STOOL UA Bili Negative *NA* (05/12/14 11:05 PM) Negative 05/13/2014 [facility] URINE AND STOOL UA Protein Negative (05/12/14 11:05 PM) Negative 05/13/2014 [facility] URINE AND STOOL UA pH 6.0 5.0 - 8.0 05/13/2014 [facility] URINE AND STOOL UA Spec Grav 1.020 <=1.030 05/13/2014 [facility] URINE AND STOOL UA Ketones Negative *NA* (05/12/14 11:05 PM) Negative 05/13/2014 [facility] URINE AND STOOL UA Glucose Negative (05/12/14 11:05 PM) Negative 05/13/2014 [facility] URINE AND STOOL UA Color Yellow *NA* (05/12/14 11:05 PM) Yellow 05/13/2014 [facility] URINE AND STOOL UA Turbidity Clear (05/12/14 11:05 PM) Clear 05/13/2014 [facility] [place]Y [place] [id number] mIU/mL 05/08/2014 1Interpretive Data: Reference Range: Male 0 - 5 mIU/mL Non- Female 0 - 5 mIU/mL Note: hCG result should be used in conjunction with symptoms, results of other tests, and clinical impressions. Weeks of Gestation hCG (mIU/mL) 3 6 - 71 4 10-750 5 217 - 7,138 6 158 -31,795 7 3,697 - 163,563 8 32,065 - 149,571 9 63,803 - 151,410 10 46,506 - 186,977 11 27,832 - 210,612 14 13,950 - 62,530 15 12,039 - 70,971 16 9,040 - 56,451 17 8,175 - 55,868 18 8,099 - 58,176 [facility] Hgb 12.7 g/dL 12.0 - 16.0 05/08/2014 [facility] Hct 36.1 % 36.0 - 48.0 05/08/2014 [facility] MCHC 35.1 g/dL 32.0 - 36.0 05/08/2014 [facility] RBC 4.89 M/CMM 4.20 - 5.40 05/08/2014 [facility] WBC 7.4 K/CMM 3.7 - 10.4 05/08/2014 [facility] Platelet 359 K/CMM 133 - 450 05/08/2014 [facility] RDW 15.7 % 11.5 - 14.5 05/08/2014 [facility] MCV 73.7 fL 81.0 - 99.0 05/08/2014 [facility] MCH 25.9 pg 27.0 - 31.0 05/08/2014 [facility] MPV 7.6 fL 7.4 - 10.4 05/08/2014 [facility] Microcyte 1+ *ABN* (05/08/14 2:35 PM) None Seen 05/08/2014 [facility] Segs-Bands # 4.5 K/CMM 1.5 - 8.1 05/08/2014 [facility] Segs 60.0 % 45.0 - 75.0 05/08/2014 [facility] Monocytes 6.8 % 2.0 - 12.0 05/08/2014 [facility] Eosinophils 1.0 % 0.0 - 4.0 05/08/2014 [facility] Lymphocytes 31.6 % 20.0 - 40.0 05/08/2014 [facility] Monocytes # 0.5 K/CMM 0.0 - 0.8 05/08/2014 [facility] Basophils 0.6 % 0.0 - 1.0 05/08/2014 [facility] HEMATOLOGY Lymphocytes # 2.3 K/CMM 1.0 - 5.5 05/08/2014 [facility] HEMATOLOGY Eosinophils # 0.1 K/CMM 0.0 - 0.5 05/08/2014 [facility] BLOOD BANK RESULTS ABO/Rh B POS 05/07/2014 [facility] [place] [id number] mIU/mL 05/07/2014 3Interpretive Data: Reference Range: Male 0 - 5 mIU/mL Non- Female 0 - 5 mIU/mL Note: hCG result should be used in conjunction with symptoms, results of other tests, and clinical impressions. Weeks of Gestation hCG (mIU/mL) 3 6 - 71 4 10-750 5 217 - 7,138 6 158 -31,795 7 3,697 - 163,563 8 32,065 - 149,571 9 63,803 - 151,410 10 46,506 - 186,977 11 27,832 - 210,612 14 13,950 - 62,530 15 12,039 - 70,971 16 9,040 - 56,451 17 8,175 - 55,868 18 8,099 - 58,176 [facility] CHEM PANEL B/C Ratio 10 6 - 25 05/07/2014 [facility] CHEM PANEL AGAP 11.5 meq/L 10.0 - 20.0 05/07/2014 [facility] CHEM PANEL A/G Ratio 1.0 0.7 - 1.6 05/07/2014 [facility] CHEM PANEL Globulin 3.6 g/dL 2.0 - 4.0 05/07/2014 [facility] CHEM PANEL Bili Total 0.3 mg/dL 0.2 - 1.3 05/07/2014 [facility] CHEM PANEL Alk Phos 64 unit/L 39 - 136 05/07/2014 [facility] CHEM PANEL AST 12 unit/L 0 - 37 05/07/2014 [facility] CHEM PANEL ALT 14 unit/L 0 - 65 05/07/2014 [facility] CHEM PANEL Albumin Lvl 3.6 g/dL 3.5 - 5.0 05/07/2014 [facility] CHEM PANEL eGFR 95 mL/min/1.73m2 05/07/2014 1Result Comment: The eGFR is calculated using the CKD-EPI formula. In most young, healthy individuals the eGFR will be >90 mL/min/1.73m2. The eGFR declines with age. An eGFR of 60-89 may be normal in some populations, particularly the elderly, for whom the CKD-EPI formula has not been extensively validated. Use of the eGFR is not recommended in the following populations: Individuals with unstable creatinine concentrations, including patients and those with serious co-morbid conditions. Patients with extremes in muscle mass or diet. The data above are obtained from the National Kidney Disease Education Program (NKDEP) which additionally recommends that when the eGFR is used in patients with extremes of body mass index for purposes of drug dosing, the eGFR should be multiplied by the estimated BMI. [facility] CHEM PANEL Sodium Lvl 136 meq/L 135 - 145 05/07/2014 [facility] CHEM PANEL Creatinine Lvl 0.9 mg/dL 0.5 - 1.4 05/07/2014 [facility] CHEM PANEL BUN 9 mg/dL 7 - 22 05/07/2014 [facility] CHEM PANEL Glucose Lvl 90 mg/dL 70 - 99 05/07/2014 2Interpretive Data: Adult reference range values reflect the clinical guidelines of the [place] [employer]. [facility] CHEM PANEL Total Protein 7.2 g/dL 6.4 - 8.4 05/07/2014 [facility] CHEM PANEL Calcium Lvl 9.1 mg/dL 8.5 - 10.5 05/07/2014 [facility] CHEM PANEL CO2 25 meq/L 24 - 32 05/07/2014 [facility] CHEM PANEL Chloride Lvl 103 meq/L 95 - 109 05/07/2014 [facility] CHEM PANEL Potassium Lvl 3.5 meq/L 3.5 - 5.1 05/07/2014 [facility] HEMATOLOGY Basophils # 0.1 K/CMM 0.0 - 0.2 05/07/2014 [facility] HEMATOLOGY Microcyte 1+ *ABN* (05/07/14 8:30 AM) None Seen 05/07/2014 [facility] HEMATOLOGY Eosinophils # 0.1 K/CMM 0.0 - 0.5 05/07/2014 [facility] HEMATOLOGY Lymphocytes 30.5 % 20.0 - 40.0 05/07/2014 [facility] HEMATOLOGY Monocytes 6.2 % 2.0 - 12.0 05/07/2014 [facility] HEMATOLOGY Eosinophils 0.9 % 0.0 - 4.0 05/07/2014 [facility] HEMATOLOGY Basophils 0.9 % 0.0 - 1.0 05/07/2014 [facility] HEMATOLOGY Segs-Bands # 4.3 K/CMM 1.5 - 8.1 05/07/2014 [facility] HEMATOLOGY Lymphocytes # 2.1 K/CMM 1.0 - 5.5 05/07/2014 [facility] HEMATOLOGY Monocytes # 0.4 K/CMM 0.0 - 0.8 05/07/2014 [facility] HEMATOLOGY Segs 61.5 % 45.0 - 75.0 05/07/2014 [facility] HEMATOLOGY Hct 34.9 % 36.0 - 48.0 05/07/2014 [facility] MCV 73.0 fL 81.0 - 99.0 05/07/2014 [facility] MCH 24.9 pg 27.0 - 31.0 05/07/2014 [facility] MCHC 34.0 g/dL 32.0 - 36.0 05/07/2014 [facility] RBC 4.78 M/CMM 4.20 - 5.40 05/07/2014 [facility] Hgb 11.9 g/dL 12.0 - 16.0 05/07/2014 [facility] WBC 6.9 K/CMM 3.7 - 10.4 05/07/2014 [facility] RDW 15.2 % 11.5 - 14.5 05/07/2014 [facility] Platelet 346 K/CMM 133 - 450 05/07/2014 [facility] MPV 7.5 fL 7.4 - 10.4 05/07/2014 [facility] URINE AND STOOL UA Color Ltyellow 05/07/2014 [facility] URINE AND STOOL UA Urobilinogen <=1.0 mg/dL 0.1 - 1.0 05/07/2014 [facility] URINE AND STOOL UA Bacteria Occasional /HPF None Seen /HPF 05/07/2014 [facility] URINE AND STOOL UA RBC 1 /HPF 0 - 2 05/07/2014 [facility] URINE AND STOOL UA Ketones Negative mg/dL Negative mg/dL 05/07/2014 [facility] URINE AND STOOL UA Bili Negative *NA* (05/07/14 8:30 AM) Negative 05/07/2014 [facility] URINE AND STOOL UA Glucose Negative mg/dL Negative mg/dL 05/07/2014 [facility] URINE AND STOOL UA Turbidity Slight *ABN* (7/2/14 8:30 AM) Clear 05/07/2014 [facility] URINE AND STOOL UA Spec Grav 1.011 <=1.030 05/07/2014 [facility] URINE AND STOOL UA WBC 2 /HPF 0 - 5 05/07/2014 [facility] URINE AND STOOL UA Blood Negative (05/07/14 8:30 AM) Negative 05/07/2014 [facility] URINE AND STOOL UA Leuk Est Moderate *ABN* (05/07/14 8:30 AM) Negative 05/07/2014 [facility] URINE AND STOOL UA Nitrite Negative (05/07/14 8:30 AM) Negative 05/07/2014 [facility] URINE AND STOOL UA Sq Epi Moderate /LPF Few /LPF 05/07/2014 [facility] URINE AND STOOL UA pH 5.0 5.0 - 8.0 05/07/2014 [facility] URINE AND STOOL UA Protein Negative mg/dL Negative mg/dL 05/07/2014 [facility] URINE CHEM U Preg Positive *ABN* (05/07/14 8:30 AM) Negative 05/07/2014 [facility] Preg < 14wks Single gest w Transvag US Preg < 14wks Single gest w Transvag US ultrasound less than 14 weeks: COMPARISON: No priors TECHNIQUE: Transabdominal and transvaginal images are submitted for review. Transabdominal images demonstrate a gravid uterus. The uterus measures approximately 8.8 cm in the sagittal length. TRANSVAGINAL ULTRASOUND: Transvaginal images demonstrate an intrauterine with a crown-rump length of 4 mm corresponding to a 6 week one day gestation. Gestational age by sac measurements is 6 weeks 2 days.. Estimated due date by sonography is 12/29/2014. Faint cardiac activity is noted. heart rate is calculated at 122 bpm. Small subchorionic hemorrhage is noted. The yolk sac is visualized. No free fluid is seen in the cul-de-sac. 13 mm cyst is visualized in the left ovary. Right ovary is unremarkable in appearance. IMPRESSION: Single live IUP with approximate age by sonography of 6 weeks 2 days +/- 1 week. Faint cardiac activity is noted. 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 Small submembranous hemorrhage is visualized. SL:13 05/07/2014 - - Read by: Wes Juarez MD Dictated Date/time: 05/07/14 10:59 Electronically Signed by: Wes Juarez MD 05/07/14 11:05 FINAL REPORT [facility] Vital Signs Vital Sign Value Date Comments Source Respitory Rate 19 04/25/2017 [facility] Systolic (mm Hg) 165 04/25/2017 [facility] Diastolic (mm Hg) 89 04/25/2017 [facility] Weight 81.818 04/24/2017 [facility] Height 165.1 cm 04/24/2017 [facility] BMI Calculated 30.02 04/24/2017 [facility] Temperature Oral (F) 98.6 F 04/24/2017 [facility] Heart Rate 75 04/24/2017 [facility] Respitory Rate 18 04/24/2017 [facility] Systolic (mm Hg) 156 04/24/2017 [facility] Diastolic (mm Hg) 100 04/24/2017 [facility] Temperature Oral (F) 97.8 F 10/14/2015 [facility] Systolic (mm Hg) 120 10/14/2015 [facility] Diastolic (mm Hg) 79 10/14/2015 [facility] Respitory Rate 18 10/14/2015 [facility] Heart Rate 72 10/14/2015 [facility] Heart Rate 73 10/14/2015 [facility] Respitory Rate 20 10/14/2015 [facility] Temperature Oral (F) 98.7 F 10/14/2015 [facility] Systolic (mm Hg) 124 10/14/2015 [facility] Diastolic (mm Hg) 74 10/14/2015 [facility] Heart Rate 80 10/14/2015 [facility] Respitory Rate 18 10/14/2015 [facility] Systolic (mm Hg) 141 10/14/2015 [facility] Diastolic (mm Hg) 95 10/14/2015 [facility] Weight 81.818 10/14/2015 [facility] BMI Calculated 30.02 10/14/2015 [facility] Height 165.1 cm 10/14/2015 [facility] Temperature Oral (F) 98.3 F 10/14/2015 [facility] Heart Rate 60 03/05/2015 [facility] Respitory Rate 18 03/05/2015 [facility] Systolic (mm Hg) 143 03/05/2015 [facility] Diastolic (mm Hg) 74 03/05/2015 [facility] Systolic (mm Hg) 152 03/05/2015 [facility] Diastolic (mm Hg) 86 03/05/2015 [facility] Respitory Rate 13 03/05/2015 [facility] Systolic (mm Hg) 159 03/05/2015 [facility] Diastolic (mm Hg) 82 03/05/2015 [facility] Respitory Rate 14 03/05/2015 [facility] Heart Rate 71 03/05/2015 [facility] Weight 81.818 02/27/2015 [facility] Height 165.1 cm 02/27/2015 [facility] BMI Calculated 30.02 02/27/2015 [facility] Systolic (mm Hg) 131 12/25/2014 [facility] Diastolic (mm Hg) 89 12/25/2014 [facility] Temperature Oral (F) 98.6 F 12/25/2014 [facility] Heart Rate 89 12/25/2014 [facility] Respitory Rate 18 12/25/2014 [facility] Temperature Oral (F) 97.8 F 12/25/2014 [facility] Systolic (mm Hg) 134 12/25/2014 [facility] Diastolic (mm Hg) 84 12/25/2014 [facility] Respitory Rate 18 12/25/2014 [facility] Heart Rate 82 12/25/2014 [facility] Respitory Rate 18 12/24/2014 [facility] Systolic (mm Hg) 131 12/24/2014 [facility] Diastolic (mm Hg) 75 12/24/2014 [facility] Temperature Oral (F) 98.6 F 12/24/2014 [facility] Heart Rate 74 12/24/2014 [facility] BMI Calculated 32.52 12/23/2014 [facility] Height 165.1 cm 12/23/2014 [facility] Weight 88.636 12/23/2014 [facility] Diastolic (mm Hg) 80 12/20/2014 [facility] Systolic (mm Hg) 130 12/20/2014 [facility] Systolic (mm Hg) 134 12/20/2014 [facility] Temperature Oral (F) 99.2 F 12/20/2014 [facility] Diastolic (mm Hg) 97 12/20/2014 [facility] Heart Rate 96 12/20/2014 [facility] Respitory Rate 20 12/20/2014 [facility] BMI Calculated 32.52 12/20/2014 [facility] Weight 88.636 12/20/2014 [facility] Height 165.1 cm 12/20/2014 [facility] Systolic (mm Hg) 123 12/16/2014 [facility] Diastolic (mm Hg) 81 12/16/2014 [facility] Systolic (mm Hg) 133 12/16/2014 [facility] Respitory Rate 19 12/16/2014 [facility] Diastolic (mm Hg) 74 12/16/2014 [facility] Temperature Oral (F) 98.6 F 12/16/2014 [facility] Heart Rate 71 12/16/2014 [facility] Weight 88.636 12/16/2014 [facility] BMI Calculated 32.52 12/16/2014 [facility] Height 165.1 cm 12/16/2014 [facility] Diastolic (mm Hg) 70 10/15/2014 [facility] Systolic (mm Hg) 116 10/15/2014 [facility] Diastolic (mm Hg) 71 10/15/2014 [facility] Systolic (mm Hg) 121 10/15/2014 [facility] Systolic (mm Hg) 117 10/15/2014 [facility] Diastolic (mm Hg) 72 10/15/2014 [facility] Weight 84.091 10/15/2014 [facility] Height 165.1 cm 10/15/2014 [facility] BMI Calculated 30.85 10/15/2014 [facility] Diastolic (mm Hg) 70 09/06/2014 [facility] Heart Rate 75 09/06/2014 [facility] Systolic (mm Hg) 119 09/06/2014 [facility] Respitory Rate 16 09/06/2014 [facility] Temperature Oral (F) 97.5 F 09/06/2014 [facility] BMI Calculated 46.69 09/06/2014 [facility] Height 165.1 cm 09/06/2014 [facility] Weight 127.273 09/06/2014 [facility] BMI Calculated 28.41 08/04/2014 [facility] Height 170.18 cm 08/04/2014 [facility] Weight 82.273 08/04/2014 [facility] Weight 75 05/21/2014 [facility] Respitory Rate 18 05/21/2014 [facility] Diastolic (mm Hg) 80 05/21/2014 [facility] Heart Rate 79 05/21/2014 [facility] Systolic (mm Hg) 131 05/21/2014 [facility] Diastolic (mm Hg) 77 05/13/2014 [facility] Respitory Rate 18 05/13/2014 [facility] Heart Rate 76 05/13/2014 [facility] Systolic (mm Hg) 132 05/13/2014 [facility] Heart Rate 75 05/13/2014 [facility] Diastolic (mm Hg) 74 05/13/2014 [facility] Respitory Rate 18 05/13/2014 [facility] Systolic (mm Hg) 135 05/13/2014 [facility] Height 165.1 cm 05/13/2014 [facility] BMI Calculated 27.51 05/13/2014 [facility] Weight 75 05/13/2014 [facility] Temperature Oral (F) 98.6 F 05/13/2014 [facility] Diastolic (mm Hg) 77 05/13/2014 [facility] Systolic (mm Hg) 136 05/13/2014 [facility] Respitory Rate 18 05/13/2014 [facility] Heart Rate 75 05/13/2014 [facility] Diastolic (mm Hg) 74 05/08/2014 [facility] Systolic (mm Hg) 126 05/08/2014 [facility] Respitory Rate 17 05/08/2014 [facility] Heart Rate 62 05/08/2014 [facility] Temperature Oral (F) 98.0 F 05/08/2014 [facility] Height 165.1 cm 05/08/2014 [facility] BMI Calculated 27.51 05/08/2014 [facility] Weight 75 05/08/2014 [facility] Temperature Oral (F) 97.7 F 05/08/2014 [facility] Respitory Rate 18 05/08/2014 [facility] Heart Rate 74 05/08/2014 [facility] Diastolic (mm Hg) 80 05/08/2014 [facility] Systolic (mm Hg) 12 05/08/2014 [facility] Heart Rate 66 05/07/2014 [facility] Temperature Oral (F) 97.7 F 05/07/2014 [facility] Respitory Rate 16 05/07/2014 [facility] Systolic (mm Hg) 110 05/07/2014 [facility] Diastolic (mm Hg) 58 05/07/2014 [facility] Heart Rate 72 05/07/2014 [facility] Respitory Rate 16 05/07/2014 [facility] Systolic (mm Hg) 128 05/07/2014 [facility] Temperature Oral (F) 98.2 F 05/07/2014 [facility] Diastolic (mm Hg) 78 05/07/2014 [facility] BMI Calculated 27.51 05/07/2014 [facility] Height 165.1 cm 05/07/2014 [facility] Weight 75 05/07/2014 [facility] Diastolic (mm Hg) 77 05/07/2014 [facility] Systolic (mm Hg) 132 05/07/2014 [facility] Temperature Oral (F) 98.6 F 05/07/2014 [facility] Heart Rate 92 05/07/2014 [facility] Respitory Rate 16 05/07/2014 [facility] Encounters Location Location Details Encounter Type Encounter Number Reason For Visit Attending Provider ADM Date DC Date Status Source [facility] [id number] Juan Luis Mejiala 05/07/2014 05/07/2014 [facility] [id number] David Anabaptist 05/08/2014 05/08/2014 [facility] [id number] Rodríguez Henry 05/13/2014 05/13/2014 [facility] [id number] Juve Ramos 05/21/2014 05/21/2014 [facility] OP Recurring [id number] Kyle Asumugha 08/04/2014 09/03/2014 [facility] OBS Observation Patient [id number] Kyle Asumugha 09/06/2014 09/07/2014 [facility] OBS Observation Patient [id number] Loomis Asumugha 10/15/2014 10/15/2014 [facility] OBS Observation Patient [id number] Kyle Asumugha 12/16/2014 12/16/2014 [facility] OBS Observation Patient [id number] Loomis Asumugha 12/20/2014 12/20/2014 [facility] Inpatient [id number] Shanique Rosa 12/23/2014 12/25/2014 [facility] OBS Day Surgery [id number] Shanique Shelley 03/05/2015 03/06/2015 [facility] [id number] Pretty Ye 10/14/2015 10/14/2015 [facility] Emergency [id number] Cyrus Gallo 04/24/2017 04/25/2017 [facility] Outpatient [id number] Kyle Asumugha 03/23/2018 03/24/2018 [facility] Procedures Procedure Code Date Perfomer Comments Source Hernia [id number] [facility] Hernia repair [id number] [facility] Hernia [id number] [facility] Hernia repair [id number] [facility]
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
--- OUTSIDE RECORDS SUMMARY | 2018-09-18 13:18 | XMS REPORT | Summary of Care ---
Author Organization Unknown Address Unknown Phone Unavailable Encounter [facility] Courtney(WALKER) [id number] Date(s): 09/06/14 - 09/06/14 [facility] [address] [place] [address] [place] [facility] Discharge Disposition: Home Physician Attending: Kyle Duarte MD Physician Admitting: Kyle Duarte MD Reason for Visit ABDOMINAL PAIN, DECREASED MOVEMENT Vital Signs Most recent to 1 oldest [Reference Range]: Height 165.1 cm (09/06/14 4:55 PM) Temperature Oral 97.5 DegF [96.4-99.1 DegF] (09/06/14 4:57 PM) Systolic Blood 119 mmHg Pressure [90-140 (09/06/14 4:57 PM) mmHg] Diastolic Blood 70 mmHg Pressure [60-90 (09/06/14 4:57 PM) mmHg] Respiratory Rate 16 BRMIN [14-20 BRMIN] (09/06/14 4:57 PM) Peripheral Pulse 75 bpm Rate [60-100 bpm] (09/06/14 4:57 PM) Weight 127.273 kg (09/06/14 4:55 PM) Body Mass Index 46.69 m2 (09/06/14 4:55 PM) Problem List Condition Effective Dates Status Health Status Informant Abdominal < 02/24/12 Resolved pain(Confirmed) Chest Active pain(Confirmed) HTN - Resolved Hypertension(Confirm ed) (Confirmed) 05/09/14 Active (Confirmed) < 11/06/12 Resolved (Confirmed) 07/14/99 - 04/05/00 Resolved (Confirmed) 10/11/04 - 07/04/05 Resolved (Confirmed) < 11/06/06 Resolved (Confirmed) < 11/06/08 Resolved Allergies, Adverse Reactions, Alerts Substance Reaction Severity Status morphine Active sulfa drugs Active Medications LR IV 1,000 mL 1,000 mL, Rate: 125 ml/hr, Infuse over: 8 hr, Route: IV, Dosing Weight 127.273 k g, Total Volume: 1,000, Start date: 09/06/14 18:33:00, Duration: 30 day, Stop da te: 10/06/14 18:32:00 Start Date: 09/06/14 Stop Date: 09/06/14 Status: Discontinued 1 oral capsule 0 Refill(s) Start Date: 09/06/14 Status: Ordered Results URINE AND STOOL Most recent to 1 oldest [Reference Range]: UA Turbidity [Clear] Clear (09/06/14 5:49 PM) UA Color [Yellow] Yellow *NA* (09/06/14 5:49 PM) UA pH [5.0-8.0] 5.0 (09/06/14 5:49 PM) UA Spec Grav 1.012 [<=1.030] (09/06/14 5:49 PM) UA Glucose [Negative Negative mg/dL mg/dL] *NA* (09/06/14 5:49 PM) UA Blood [Negative] Negative (09/06/14 5:49 PM) UA Ketones [Negative 20 mg/dL mg/dL] *ABN* (09/06/14 5:49 PM) UA Protein [Negative Negative mg/dL mg/dL] (09/06/14 5:49 PM) UA Urobilinogen <=1.0 mg/dL [0.1-1.0 mg/dL] *NA* (09/06/14 5:49 PM) UA Bili [Negative] Negative *NA* (09/06/14 5:49 PM) UA Leuk Est Negative [Negative] (09/06/14 5:49 PM) UA Nitrite Negative [Negative] (09/06/14 5:49 PM) UA WBC [0-5 /HPF] 1 /HPF (09/06/14 5:49 PM) UA Sq Epi [Few /LPF] Few /LPF *NA* (09/06/14 5:49 PM) UA Mucus [None Seen Few /LPF /LPF] *NA* (09/06/14 5:49 PM) Medications Administered During Your Visit No data available for this section Immunizations No data available for this section Procedures Procedure Type Body Site Date of Procedure Related Diagnosis Hernia repair Social History Social History Type Response Alcohol Use: Never, Previous treatment: None, Has alcohol use interfered with work or home life? No, Do you ever drink more than intended? No, Has anyone been hurt or at risk by your drinking? No, Ready to change: No, Concerns about alcohol use in household: No Smoking Status Never smoker, Exposure to Tobacco Smoke None, Cigarette Smoking Last 365 Days No, Reg Smoking Cessation Counseling No
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
--- OUTSIDE RECORDS SUMMARY | 2018-09-18 13:18 | XMS REPORT | Summary of Care ---
Author Organization Unknown Address Unknown Phone Unavailable Encounter HQ Flip_deborah(WALKER) [id number] Date(s): 08/04/14 - 09/02/14 [facility] [address] [place] [address] - [facility] Discharge Disposition: Home Physician Attending: Kyle Duarte MD Physician_Referring: Kyle Duarte MD Reason for Visit AMA Vital Signs Most recent to 1 oldest [Reference Range]: Height 170.18 cm (08/04/14 10:21 AM) Weight 82.273 kg (08/04/14 10:21 AM) Body Mass Index 28.41 m2 (08/04/14 10:21 AM) Problem List Condition Effective Dates Status Health Status Informant Abdominal < 02/24/12 Resolved pain(Confirmed) Chest Active pain(Confirmed) HTN - Resolved Hypertension(Confirm ed) (Confirmed) 05/09/14 Active Allergies, Adverse Reactions, Alerts Substance Reaction Severity [...]
--- OUTSIDE RECORDS SUMMARY | 2018-09-18 13:18 | XMS REPORT | Summary of Care ---
Author Organization Unknown Address Unknown Phone Unavailable Encounter SHYANN Valdez(WALKER) [id number] Date(s): 05/08/14 - 05/08/14 [facility] [address] [address] [place], [place] [address] - [facility] Discharge Diagnosis: Bacterial vaginitis Discharge Diagnosis: , threatened Discharge Disposition: Home Physician Attending: David Edwards MD Reason for Visit VAG DISCHARGE Vital Signs Most recent to 1 2 oldest [Reference Range]: Height 165.1 cm (05/08/14 1:52 PM) Temperature Oral 98.0 DegF 97.7 DegF [96.4-99.1 DegF] (05/08/14 4:00 PM) (05/08/14 1:52 PM) Systolic Blood 126 mmHg 12 mmHg Pressure [90-140 (05/08/14 4:00 PM) *LOW* mmHg] (05/08/14 1:52 PM) Diastolic Blood 74 mmHg 80 mmHg Pressure [60-90 (05/08/14 4:00 PM) (05/08/14 1:52 PM) mmHg] Respiratory Rate 17 BRMIN 18 BRMIN [14-20 BRMIN] (05/08/14 4:00 PM) (05/08/14 1:52 PM) Peripheral Pulse 62 bpm 74 bpm Rate [60-100 bpm] (05/08/14 4:00 PM) (05/08/14 1:52 PM) Weight 75 kg (05/08/14 1:52 PM) Body Mass Index 27.51 m2 (05/08/14 1:52 PM) Problem List Condition Effective Dates Status Health Status Informant Abdominal < 02/24/12 Resolved pain(Confirmed) Chest Active pain(Confirmed) HTN - Resolved Hypertension(Confirm ed) Allergies, Adverse Reactions, Alerts Substance Reaction Severity Status morphine Active sulfa drugs Active Medications Flagyl 500 mg oral tablet 500 mg=1 tab, PO, Q12H, # 14 tab, 0 Refill(s) Start Date: 05/08/14 Status: Ordered [place] 5/325 oral tablet 1 tab, Route: PO, Dosing Weight 75, kg, ONCE, Start date: 05/08/14 14:21:00, Sto p date: 05/08/14 14:21:00 Start Date: 05/08/14 Stop Date: 05/08/14 Status: Completed Zofran ODT 4 mg, Route: PO, Drug form: TABDIS, ONCE, Dosing Weight 75, kg, Priority: STAT, Start date: 05/08/14 14:21:00, Stop date: 05/08/14 14:21:00 Start Date: 05/08/14 Stop Date: 05/08/14 Status: Completed Results ENDOCRINOLOGY Most recent to 1 oldest [Reference Range]: hCG Tot 19891 mIU/mL 1 *NA* (05/08/14 2:35 PM) 1Interpretive Data: Reference Range: Male 0 - [...] 8,175 - 55,868 18 8,099 - 58,176 HEMATOLOGY Most recent to 1 oldest [Reference Range]: WBC [3.7-10.4 K/CMM] 7.4 K/CMM (05/08/14 2:35 PM) RBC [4.20-5.40 4.89 M/CMM M/CMM] (05/08/14 2:35 PM) Hgb [12.0-16.0 g/dL] 12.7 g/dL (05/08/14 2:35 PM) Hct [36.0-48.0 %] 36.1 % (05/08/14 2:35 PM) MCV [81.0-99.0 fL] 73.7 fL *LOW* (05/08/14 2:35 PM) MCH [27.0-31.0 pg] 25.9 pg *LOW* (05/08/14 2:35 PM) MCHC [32.0-36.0 35.1 g/dL g/dL] (05/08/14 2:35 PM) RDW [11.5-14.5 %] 15.7 % *HI* (05/08/14 2:35 PM) Platelet [133-450 359 K/CMM K/CMM] (05/08/14 2:35 PM) MPV [7.4-10.4 fL] 7.6 fL (05/08/14 2:35 PM) Segs [45.0-75.0 %] 60.0 % (05/08/14 2:35 PM) Lymphocytes 31.6 % [20.0-40.0 %] (05/08/14 2:35 PM) Monocytes [2.0-12.0 6.8 % %] (05/08/14 2:35 PM) Eosinophils [0.0-4.0 1.0 % %] (05/08/14 2:35 PM) Basophils [0.0-1.0 0.6 % %] (05/08/14 2:35 PM) Segs-Bands # 4.5 K/CMM [1.5-8.1 K/CMM] (05/08/14 2:35 PM) Lymphocytes # 2.3 K/CMM [1.0-5.5 K/CMM] (05/08/14 2:35 PM) Monocytes # [0.0-0.8 0.5 K/CMM K/CMM] (05/08/14 2:35 PM) Eosinophils # 0.1 K/CMM [0.0-0.5 K/CMM] (05/08/14 2:35 PM) Microcyte [None 1+ Seen] *ABN* (05/08/14 2:35 PM) Medications Administered During Your Visit No data available for this section Immunizations No data available for this section
--- OUTSIDE RECORDS SUMMARY | 2018-09-18 13:18 | XMS REPORT | Summary of Care ---
Author Organization Unknown Address Unknown Phone Unavailable Encounter SHYANN Valdez(WALKER) [id number] Date(s): 05/07/14 - 05/07/[address] [facility] [place] [address] [address], [place] [address] - [facility] Discharge Diagnosis: , threatened Discharge Diagnosis: Urinary tract infection Discharge Disposition: Home Physician Attending: Juan Luis Naik DO Reason for Visit ABDOMINAL PAIN Vital Signs 1 2 3 Most recent to oldest [Reference Range]: 165.1 cm (05/07/14 8:06 AM) Height 97.7 DegF (05/07/14 1:25 PM) 98.2 DegF (05/07/14 12:00 PM) 98.6 DegF (05/07/14 8:06 AM) Temperature Oral [96.4-99.1 DegF] 110 mmHg (05/07/14 1:25 PM) 128 mmHg (05/07/14 12:00 PM) 132 mmHg (05/07/14 8:06 AM) Systolic Blood Pressure [90-140 mmHg] 58 mmHg *LOW* (05/07/14 1:25 PM) 78 mmHg (05/07/14 12:00 PM) 77 mmHg (05/07/14 8:06 AM) Diastolic Blood Pressure [60-90 mmHg] 16 BRMIN (05/07/14 1:25 PM) 16 BRMIN (05/07/14 12:00 PM) 16 BRMIN (05/07/14 8:06 AM) Respiratory Rate [14-20 BRMIN] 66 bpm (05/07/14 1:25 PM) 72 bpm (05/07/14 12:00 PM) 92 bpm (05/07/14 8:06 AM) Peripheral Pulse Rate [60-100 bpm] 75 kg (05/07/14 8:06 AM) Weight 27.51 m2 (05/07/14 8:06 AM) Body Mass Index Problem List Condition Effective Dates Status Health Status Informant Abdominal < 02/24/12 Resolved pain(Confirmed) Chest Active pain(Confirmed) HTN - Resolved Hypertension(Confirm ed) Allergies, Adverse Reactions, Alerts Substance Reaction Severity Status morphine Active sulfa drugs Active Medications Benadryl 25 mg, 0.5 mL, Route: IVP, Drug form: INJ, ONCE, Dosing Weight 75, kg, PRN Aller gic reaction, Start date: 05/07/14 11:34:00 Notes: (Same as: Benadryl) Start Date: 05/07/14 Stop Date: 05/07/14 Status: Discontinued Benadryl 25 mg, Route: IVP, ONCE, Dosing Weight 75, kg, Priority: STAT, Start date: 05/07 11:38:00, Stop date: 05/07/14 11:38:00 Start Date: 05/07/14 Stop Date: 05/07/14 Status: Completed famotidine 20 mg, Route: IV, ONCE, Dosing Weight 75, kg, Priority: STAT, Start date: 11:34:00, Stop date: 05/07/14 11:34:00 Start Date: 05/07/14 Stop Date: 05/07/14 Status: Completed Macrobid 100 mg oral capsule 100 mg=1 cap, PO, BID, # 14 tab, 0 Refill(s) Start Date: 05/07/14 Status: Ordered morphine Sulfate 4 mg, Route: IVP, ONCE, Dosing Weight 75, kg, Priority: STAT, Start date: 9:39:00, Stop date: 05/07/14 9:39:00 Start Date: 05/07/14 Stop Date: 05/07/14 Status: Completed Pepcid 20 mg, 2 mL, Route: IV, Drug form: INJ, ONCE, Dosing Weight 75, kg, Start date: 05/07/14 11:38:00, Stop date: 05/07/14 11:38:00 Notes: (Same as: Pepcid)Can be dilute in 5-10cc NS IVP: Slow IV push over at le ast 2 minutes. Start Date: 05/07/14 Stop Date: 05/07/14 Status: Ordered Sodium Chloride 0.9% (Bolus) IV - - 1,000 mL, 1,000 ml/hr, Infuse Over: 1 hr, Route: IV, 1,000, Drug form: INJ, ONCE , Priority: STAT, Dosing Weight 75 kg, Start date: 05/07/14 8:51:00, Duration: 1 doses or times, Stop date: 05/07/14 8:51:00 Start Date: 05/07/14 Stop Date: 05/07/14 Status: Completed Zofran 4 mg, 2 mL, Route: IVP, Drug form: INJ, ONCE, Dosing Weight 75, kg, Priority: ST AT, Start date: 05/07/14 8:51:00, Stop date: 05/07/14 8:51:00 Notes: (Same as: Zofran) Start Date: 05/07/14 Stop Date: 05/07/14 Status: Completed Zofran ODT 4 mg oral tablet, disintegrating 4 mg=1 tab, PO, BID, Nausea and Vomiting, Dissolve tab under tongue, # 10 tab, 0 Refill(s) Special Instructions: Dissolve tab under tongue Start Date: 05/07/14 Status: Ordered ZyrTEC 10 mg oral tablet 10 mg=1 tab, PO, Daily, # 10 tab, 0 Refill(s) Start Date: 05/07/14 Status: Ordered Results BLOOD BANK RESULTS Most recent to 1 oldest [Reference Range]: ABO/Rh B POS *Unknown* (05/07/14 9:15 AM) ELECTROLYTES Most recent to 1 oldest [Reference Range]: Sodium Lvl [135-145 136 mEq/L mEq/L] (05/07/14 8:30 AM) Potassium Lvl 3.5 mEq/L [3.5-5.1 mEq/L] (05/07/14 8:30 AM) Chloride Lvl [95-109 103 mEq/L mEq/L] (05/07/14 8:30 AM) CO2 [24-32 mEq/L] 25 mEq/L (05/07/14 8:30 AM) AGAP [10.0-20.0 11.5 mEq/L mEq/L] (05/07/14 8:30 AM) CHEM PANEL Most recent to 1 oldest [Reference Range]: Creatinine Lvl 0.9 mg/dL [0.5-1.4 mg/dL] (05/07/14 8:30 AM) eGFR 95 mL/min/1.73m2 1 *NA* (05/07/14 8:30 AM) BUN [7-22 mg/dL] 9 mg/dL (05/07/14 8:30 AM) B/C Ratio [6-25] 10 (05/07/14 8:30 AM) Glucose Lvl [70-99 90 mg/dL 2 mg/dL] (05/07/14 8:30 AM) Total Protein 7.2 g/dL [6.4-8.4 g/dL] (05/07/14 8:30 AM) Albumin Lvl [3.5-5.0 3.6 g/dL g/dL] (05/07/14 8:30 AM) Globulin [2.0-4.0 3.6 g/dL g/dL] (05/07/14 8:30 AM) A/G Ratio [0.7-1.6] 1.0 (05/07/14 8:30 AM) Calcium Lvl 9.1 mg/dL [8.5-10.5 mg/dL] (05/07/14 8:30 AM) ALT [0-65 unit/L] 14 unit/L (05/07/14 8:30 AM) AST [0-37 unit/L] 12 unit/L (05/07/14 8:30 AM) Alk Phos [39-136 64 unit/L unit/L] (05/07/14 8:30 AM) Bili Total [0.2-1.3 0.3 mg/dL mg/dL] (05/07/14 8:30 AM) 1Result Comment: The eGFR is calculated [...] be mul tiplied by the estimated BMI. 2Interpretive Data: Adult reference range values reflect the clinical guidelines of the [place] [employer]. ENDOCRINOLOGY Most recent to 1 oldest [Reference Range]: [place] [address] mIU/mL 3 *NA* (05/07/14 8:30 AM) 3Interpretive Data: Reference Range: Male 0 - [...] 8,175 - 55,868 18 8,099 - 58,176 URINE CHEM Most recent to 1 oldest [Reference Range]: U Preg [Negative] Positive *ABN* (05/07/14 8:30 AM) URINE AND STOOL Most recent to 1 oldest [Reference Range]: UA Turbidity [Clear] Slight *ABN* (05/07/14 8:30 AM) UA Color Ltyellow *NA* (05/07/14 8:30 AM) UA pH [5.0-8.0] 5.0 (05/07/14 8:30 AM) UA Spec Grav 1.011 [<=1.030] (05/07/14 8:30 AM) UA Glucose [Negative Negative mg/dL mg/dL] *NA* (05/07/14 8:30 AM) UA Blood [Negative] Negative (05/07/14 8:30 AM) UA Ketones [Negative Negative mg/dL mg/dL] *NA* (05/07/14 8:30 AM) UA Protein [Negative Negative mg/dL mg/dL] (05/07/14 8:30 AM) UA Urobilinogen <=1.0 mg/dL [0.1-1.0 mg/dL] *NA* (05/07/14 8:30 AM) UA Bili [Negative] Negative *NA* (05/07/14 8:30 AM) UA Leuk Est Moderate [Negative] *ABN* (05/07/14 8:30 AM) UA Nitrite Negative [Negative] (05/07/14 8:30 AM) UA WBC [0-5 /HPF] 2 /HPF (05/07/14 8:30 AM) UA RBC [0-2 /HPF] 1 /HPF (05/07/14 8:30 AM) UA Bacteria [None Occasional /HPF Seen /HPF] *NA* (05/07/14 8:30 AM) UA Sq Epi [Few /LPF] Moderate /LPF *ABN* (05/07/14 8:30 AM) HEMATOLOGY Most recent to 1 oldest [Reference Range]: WBC [3.7-10.4 K/CMM] 6.9 K/CMM (05/07/14 8:30 AM) RBC [4.20-5.40 4.78 M/CMM M/CMM] (05/07/14 8:30 AM) Hgb [12.0-16.0 g/dL] 11.9 g/dL *LOW* (05/07/14 8:30 AM) Hct [36.0-48.0 %] 34.9 % *LOW* (05/07/14 8:30 AM) MCV [81.0-99.0 fL] 73.0 fL *LOW* (05/07/14 8:30 AM) MCH [27.0-31.0 pg] 24.9 pg *LOW* (05/07/14 8:30 AM) MCHC [32.0-36.0 34.0 g/dL g/dL] (05/07/14 8:30 AM) RDW [11.5-14.5 %] 15.2 % *HI* (05/07/14 8:30 AM) Platelet [133-450 346 K/CMM K/CMM] (05/07/14 8:30 AM) MPV [7.4-10.4 fL] 7.5 fL (05/07/14 8:30 AM) Segs [45.0-75.0 %] 61.5 % (05/07/14 8:30 AM) Lymphocytes 30.5 % [20.0-40.0 %] (05/07/14 8:30 AM) Monocytes [2.0-12.0 6.2 % %] (05/07/14 8:30 AM) Eosinophils [0.0-4.0 0.9 % %] (05/07/14 8:30 AM) Basophils [0.0-1.0 0.9 % %] (05/07/14 8:30 AM) Segs-Bands # 4.3 K/CMM [1.5-8.1 K/CMM] (05/07/14 8:30 AM) Lymphocytes # 2.1 K/CMM [1.0-5.5 K/CMM] (05/07/14 8:30 AM) Monocytes # [0.0-0.8 0.4 K/CMM K/CMM] (05/07/14 8:30 AM) Eosinophils # 0.1 K/CMM [0.0-0.5 K/CMM] (05/07/14 8:30 AM) Basophils # [0.0-0.2 0.1 K/CMM K/CMM] (05/07/14 8:30 AM) Microcyte [None 1+ Seen] *ABN* (05/07/14 8:30 AM) Medications Administered During Your Visit No data available for this section Immunizations No data available for this section
--- OUTSIDE RECORDS SUMMARY | 2018-09-18 13:18 | XMS REPORT | Summary of Care ---
Author Author [facility] Organization [facility] Address Unknown Phone Unavailable Encounter SHYANN Valdez(WALKER) [id number] Date(s): 04/24/17 - 04/24/17 [facility] [address] [employer] provided by [facility] [employer] [facility] [place] [address]- Discharge Diagnosis: Acute diarrhea Discharge Disposition: Home or Self Care Attending Physician: Cyrus Gallo MD Vital Signs Most recent to 1 2 oldest [Reference Range]: Height 165.1 cm (04/24/17 3:25 PM) Temperature Oral 98.6 DegF [96.4-99.1 DegF] (04/24/17 3:25 PM) Blood Pressure 156/100 mmHg [90-140/60-90 mmHg] *HI* (04/24/17 3:25 PM) Systolic Blood 165 mmHg Pressure [90-140 *HI* mmHg] (04/24/17 7:30 PM) Diastolic Blood 89 mmHg Pressure [60-90 (04/24/17 7:30 PM) mmHg] Respiratory Rate 19 BRMIN 18 BRMIN [14-20 BRMIN] (04/24/17 7:30 PM) (04/24/17 3:25 PM) Peripheral Pulse 75 bpm Rate [60-100 bpm] (04/24/17 3:25 PM) Weight 81.818 kg (04/24/17 3:25 PM) Body Mass Index 30.02 m2 (04/24/17 3:25 PM) Problem List Condition Effective Dates Status Health Status Informant Abdominal < 02/24/12 Resolved pain(Confirmed) Chest Active pain(Confirmed) Gestational Active hypertension(Confirm ed) HTN - Resolved Hypertension(Confirm ed) (Confirmed) 09/25/12 - 2012 Resolved (Confirmed) 09/25/08 - 2008 Resolved (Confirmed) 11/20/2006 Resolved (Confirmed) 06/16/99 - 03/08/00 Resolved (Confirmed) 10/11/04 - 07/04/05 Resolved (Confirmed) 05/09/14 - 12/23/14 Resolved Allergies, Adverse Reactions, Alerts Substance Reaction Severity Status morphine Active sulfa drugs Active Medications No data available for this section Results ELECTROLYTES Most recent to 1 oldest [Reference Range]: Sodium Lvl [135-145 138 mEq/L mEq/L] (04/24/17 3:37 PM) Potassium Lvl 3.8 mEq/L [3.5-5.1 mEq/L] (04/24/17 3:37 PM) Chloride Lvl [95-109 104 mEq/L mEq/L] (04/24/17 3:37 PM) CO2 [24-32 mEq/L] 24 mEq/L (04/24/17 3:37 PM) AGAP [10.0-20.0 13.8 mEq/L mEq/L] (04/24/17 3:37 PM) CHEM PANEL Most recent to 1 oldest [Reference Range]: Creatinine Lvl 0.84 mg/dL [0.50-1.40 mg/dL] (04/24/17 3:37 PM) eGFR 101 mL/min/1.73m2 1 *NA* (04/24/17 3:37 PM) BUN [7-22 mg/dL] 6 mg/dL *LOW* (04/24/17 3:37 PM) B/C Ratio [6-25] 7 (04/24/17 3:37 PM) Glucose Lvl [70-99 90 mg/dL mg/dL] (04/24/17 3:37 PM) Total Protein 8.0 g/dL [6.4-8.4 g/dL] (04/24/17 3:37 PM) Albumin Lvl [3.5-5.0 3.8 g/dL g/dL] (04/24/17 3:37 PM) Globulin [2.7-4.2 4.2 g/dL g/dL] (04/24/17 3:37 PM) A/G Ratio [0.7-1.6] 0.9 (04/24/17 3:37 PM) Calcium Lvl 8.7 mg/dL [8.5-10.5 mg/dL] (04/24/17 3:37 PM) ALT [0-65 unit/L] 13 unit/L (04/24/17 3:37 PM) AST [0-37 unit/L] 13 unit/L (04/24/17 3:37 PM) Alk Phos [39-136 62 unit/L unit/L] (04/24/17 3:37 PM) Bili Total [0.2-1.3 0.5 mg/dL mg/dL] (04/24/17 3:37 PM) 1Result Comment: The eGFR is calculated using [...] be mul tiplied by the estimated BMI. URINE CHEM Most recent to 1 oldest [Reference Range]: U Preg [Negative] Negative (04/24/17 5:20 PM) URINE AND STOOL Most recent to 1 oldest [Reference Range]: UA Turbidity [Clear] Clear (04/24/17 5:20 PM) UA Color [Yellow] Yellow *NA* (04/24/17 5:20 PM) UA pH [5.0-8.0] 6.0 (04/24/17 5:20 PM) UA Spec Grav 1.015 [<=1.030] (04/24/17 5:20 PM) UA Glucose Negative [Negative] (04/24/17 5:20 PM) UA Blood [Negative] Negative (04/24/17 5:20 PM) UA Ketones Negative [Negative] *NA* (04/24/17 5:20 PM) UA Protein Negative [Negative] (04/24/17 5:20 PM) UA Urobilinogen 0.2 EU/dL [0.1-1.0 EU/dL] (04/24/17 5:20 PM) UA Bili [Negative] Negative *NA* (04/24/17 5:20 PM) UA Leuk Est Trace [Negative] *ABN* (04/24/17 5:20 PM) UA Nitrite Negative [Negative] (04/24/17 5:20 PM) UA WBC [None Seen 3-5 /HPF /HPF] (04/24/17 5:20 PM) UA RBC [0-2] None Seen (04/24/17 5:20 PM) UA Bacteria [None Few /HPF Seen /HPF] (04/24/17 5:20 PM) UA Sq Epi [Few /LPF] Few /LPF (04/24/17 5:20 PM) UA Amorph [place] [None Occasional /HPF Seen /HPF] *ABN* (04/24/17 5:20 PM) HEMATOLOGY Most recent to 1 oldest [Reference Range]: WBC [3.7-10.4 K/CMM] 5.5 K/CMM (04/24/17 3:37 PM) RBC [4.20-5.40 5.20 M/CMM M/CMM] (04/24/17 3:37 PM) Hgb [12.0-16.0 g/dL] 12.9 g/dL (04/24/17 3:37 PM) Hct [36.0-48.0 %] 38.2 % (04/24/17 3:37 PM) MCV [80.0-98.0 fL] 73.5 fL *LOW* (04/24/17 3:37 PM) MCH [27.0-31.0 pg] 24.8 pg *LOW* (04/24/17 3:37 PM) MCHC [32.0-36.0 33.7 g/dL g/dL] (04/24/17 3:37 PM) RDW [11.5-14.5 %] 15.0 % *HI* (04/24/17 3:37 PM) Platelet [133-450 345 K/CMM K/CMM] (04/24/17 3:37 PM) MPV [7.4-10.4 fL] 7.2 fL *LOW* (04/24/17 3:37 PM) Segs [45.0-75.0 %] 51.0 % (04/24/17 3:37 PM) Lymphocytes 40.4 % [20.0-40.0 %] *HI* (04/24/17 3:37 PM) Monocytes [2.0-12.0 6.7 % %] (04/24/17 3:37 PM) Eosinophils [0.0-4.0 1.0 % %] (04/24/17 3:37 PM) Basophils [0.0-1.0 0.9 % %] (04/24/17 3:37 PM) Segs-Bands # 2.8 K/CMM [1.5-8.1 K/CMM] (04/24/17 3:37 PM) Lymphocytes # 2.2 K/CMM [1.0-5.5 K/CMM] (04/24/17 3:37 PM) Monocytes # [0.0-0.8 0.4 K/CMM K/CMM] (04/24/17 3:37 PM) Eosinophils # 0.1 K/CMM [0.0-0.5 K/CMM] (04/24/17 3:37 PM) Microcyte [None 2+ Seen] *ABN* (04/24/17 3:37 PM) Immunizations Given and Recorded Vaccine Date Status Refusal Reason diphtheria/pertussis, acel/tetanus adult 12/25/14 Given Procedures Procedure Date Related Diagnosis Body Site [...]
--- OUTSIDE RECORDS SUMMARY | 2018-09-18 13:18 | XMS REPORT | Summary of Care ---
Author Organization Unknown Address Unknown Phone Unavailable Encounter SHYANN Valdez(WALKER) [id number] Date(s): 12/19/14 - 12/19/14 [facility] [address] [address] [place] [address] - [facility] Discharge Disposition: Home Physician Attending: Kyle Duarte MD Physician Admitting: Kyle Duarte MD Reason for Visit CTX Vital Signs Most recent to 1 2 oldest [Reference Range]: Height 165.1 cm (12/19/14 8:55 PM) Temperature Oral 99.2 DegF [96.4-99.1 DegF] *HI* (12/19/14 9:05 PM) Systolic Blood 130 mmHg 134 mmHg Pressure [90-140 (12/19/14 10:05 PM) (12/19/14 9:05 PM) mmHg] Diastolic Blood 80 mmHg 97 mmHg Pressure [60-90 (12/19/14 10:05 PM) *HI* mmHg] (12/19/14 9:05 PM) Respiratory Rate 20 BRMIN [14-20 BRMIN] (12/19/14 9:05 PM) Peripheral Pulse 96 bpm Rate [60-100 bpm] (12/19/14 9:05 PM) Weight 88.636 kg (12/19/14 8:55 PM) Body Mass Index 32.52 m2 (12/19/14 8:55 PM) Problem List Condition Effective Dates Status Health Status Informant Abdominal < 02/24/12 Resolved pain(Confirmed) Chest Active pain(Confirmed) Gestational Active hypertension(Confirm ed) HTN - Resolved Hypertension(Confirm ed) (Confirmed) 05/09/14 Active (Confirmed) < 11/06/12 Resolved (Confirmed) 07/14/99 - 04/05/00 Resolved (Confirmed) 10/11/04 - 8/29/05 Resolved (Confirmed) < 11/06/06 Resolved (Confirmed) < 11/06/08 Resolved Allergies, Adverse Reactions, Alerts Substance Reaction Severity Status morphine Active sulfa drugs Active Medications 1 oral capsule 0 Refill(s) Start Date: 12/19/14 Status: Ordered Medications Administered During Your Visit No data [...]
--- OUTSIDE RECORDS SUMMARY | 2018-09-18 13:18 | XMS REPORT | Summary of Care ---
Author Organization Unknown Address Unknown Phone Unavailable Encounter SHYANN Valdez(WALKER) [id number] Date(s): 05/12/14 - 05/13/14 [facility] [address] [place], [place] [id number] [place] [address] Discharge Diagnosis: Currently Discharge Diagnosis: , threatened Discharge Diagnosis: Abdominal pain in female patient Discharge Diagnosis: Pelvic cramping Discharge Disposition: Home Physician Attending: Rodríguez Henry MD Reason for Visit CRAMPS Vital Signs 1 2 3 Most recent to oldest [Reference Range]: 165.1 cm (05/12/14 10:40 PM) Height 98.6 DegF (05/12/14 10:40 PM) Temperature Oral [96.4-99.1 DegF] 132 mmHg (05/13/14 3:24 AM) 135 mmHg (05/13/14 1:00 AM) 136 mmHg (05/12/14 10:40 PM) Systolic Blood Pressure [90-140 mmHg] 77 mmHg (05/13/14 3:24 AM) 74 mmHg (05/13/14 1:00 AM) 77 mmHg (05/12/14 10:40 PM) Diastolic Blood Pressure [60-90 mmHg] 18 BRMIN (05/13/14 3:24 AM) 18 BRMIN (05/13/14 1:00 AM) 18 BRMIN (05/12/14 10:40 PM) Respiratory Rate [14-20 BRMIN] 76 bpm (05/13/14 3:24 AM) 75 bpm (05/13/14 1:00 AM) 75 bpm (05/12/14 10:40 PM) Peripheral Pulse Rate [60-100 bpm] 75 kg (05/12/14 10:40 PM) Weight 27.51 m2 (05/12/14 10:40 PM) Body Mass Index Problem List Condition Effective Dates Status Health Status Informant Abdominal < 02/24/12 Resolved pain(Confirmed) Chest Active pain(Confirmed) HTN - Resolved Hypertension(Confirm ed) Allergies, Adverse Reactions, Alerts Substance Reaction Severity Status morphine Active sulfa drugs Active Medications Bentyl 20 mg oral tablet 20 mg=1 tab, PO, QID, # 30 tab, 0 Refill(s) Start Date: 05/13/14 Status: Ordered dicyclomine 20 mg, Route: IM, ONCE, Dosing Weight 75, kg, Priority: STAT, Start date: 0:36:00, Stop date: 05/13/14 0:36:00 Start Date: 05/13/14 Stop Date: 05/13/14 Status: Completed Phenergan 25 mg oral tablet 25 mg=1 tab, PO, Q6H, Nausea, # 30 tab, 0 Refill(s) Start Date: 05/13/14 Status: Ordered promethazine 25 mg, Route: IVPB, ONCE, Dosing Weight 75, kg, Priority: STAT, Start date: 06/19 0:37:00, Stop date: 05/13/14 0:37:00 Start Date: 05/13/14 Stop Date: 05/13/14 Status: Completed Results ELECTROLYTES Most recent to 1 oldest [Reference Range]: Sodium Lvl [135-145 137 mEq/L mEq/L] (05/12/14 11:05 PM) Potassium Lvl 3.4 mEq/L [3.5-5.1 mEq/L] *LOW* (05/12/14 11:05 PM) Chloride Lvl [95-109 106 mEq/L mEq/L] (05/12/14 11:05 PM) CO2 [24-32 mEq/L] 26 mEq/L (05/12/14 11:05 PM) AGAP [10.0-20.0 8.4 mEq/L mEq/L] *LOW* (05/12/14 11:05 PM) CHEM PANEL Most recent to 1 oldest [Reference Range]: Creatinine Lvl 0.7 mg/dL [0.5-1.4 mg/dL] (05/12/14 11:05 PM) eGFR 128 mL/min/1.73m2 1 *NA* (05/12/14 11:05 PM) BUN [7-22 mg/dL] 10 mg/dL (05/12/14 11:05 PM) B/C Ratio [6-25] 14 (05/12/14 11:05 PM) Glucose Lvl [70-99 91 mg/dL 2 mg/dL] (05/12/14 11:05 PM) Total Protein 6.8 g/dL [6.4-8.4 g/dL] (05/12/14 11:05 PM) Albumin Lvl [3.5-5.0 3.3 g/dL g/dL] *LOW* (05/12/1405 PM) Globulin [2.0-4.0 3.5 g/dL g/dL] (05/12/14 11:05 PM) A/G Ratio [0.7-1.6] 0.9 (05/12/14 1105 PM) Calcium Lvl 8.4 mg/dL [8.5-10.5 mg/dL] *LOW* (05/12/14 11:05 PM) ALT [0-65 unit/L] 12 unit/L (05/12/14 11:05 PM) AST [0-37 unit/L] 9 unit/L (05/12/14 11:05 PM) Alk Phos [39-136 62 unit/L unit/L] (05/12/14 11:05 PM) Bili Total [0.2-1.3 0.1 mg/dL mg/dL] *LOW* (05/12/14 11:05 PM) 1Result Comment: The eGFR is calculated [...] values reflect the clinical guidelines of the [place] [employer]. ENDOCRINOLOGY Most recent to 1 oldest [Reference Range]: S Preg [Negative] Positive *NA* (05/12/14 11:05 PM) URINE AND STOOL Most recent to 1 oldest [Reference Range]: UA Turbidity [Clear] Clear (05/12/14 11:05 PM) UA Color [Yellow] Yellow *NA* (05/12/14 11:05 PM) UA pH [5.0-8.0] 6.0 (05/12/14 11:05 PM) UA Spec Grav 1.020 [<=1.030] (05/12/14 11:05 PM) UA Glucose Negative [Negative] (05/12/14 11:05 PM) UA Blood [Negative] Negative (05/12/14 11:05 PM) UA Ketones Negative [Negative] *NA* (05/12/14 11:05 PM) UA Protein Negative [Negative] (05/12/14 11:05 PM) UA Urobilinogen 0.2 EU/dL [0.1-1.0 EU/dL] (05/12/14 11:05 PM) UA Bili [Negative] Negative *NA* (05/12/14 11:05 PM) UA Leuk Est Trace [Negative] *ABN* (05/12/14 11:05 PM) UA Nitrite Negative [Negative] (05/12/14 11:05 PM) UA WBC [None Seen 0-2 /HPF /HPF] (05/12/14 11:05 PM) UA RBC [0-2] None Seen (05/12/14 11:05 PM) UA Bacteria [None Occasional /HPF Seen /HPF] (05/12/14 11:05 PM) UA Sq Epi [Few /LPF] Occasional /LPF (05/12/14 11:05 PM) Micro? Performed (05/12/14 11:05 PM) HEMATOLOGY Most recent to 1 oldest [Reference Range]: WBC [3.7-10.4 K/CMM] 7.1 K/CMM (05/12/14 11:05 PM) RBC [4.20-5.40 4.32 M/CMM M/CMM] (05/12/14 11:05 PM) Hgb [12.0-16.0 g/dL] 10.8 g/dL *LOW* (05/12/14 11:05 PM) Hct [36.0-48.0 %] 31.7 % *LOW* (05/12/14 11:05 PM) MCV [81.0-99.0 fL] 73.3 fL *LOW* (05/12/14 11:05 PM) MCH [27.0-31.0 pg] 25.0 pg *LOW* (05/12/14 11:05 PM) MCHC [32.0-36.0 34.1 g/dL g/dL] (05/12/14 11:05 PM) RDW [11.5-14.5 %] 15.6 % *HI* (05/12/14 11:05 PM) Platelet [133-450 317 K/CMM K/CMM] (05/12/14 11:05 PM) MPV [7.4-10.4 fL] 7.4 fL (05/12/14 11:05 PM) Segs [45.0-75.0 %] 50.2 % (05/12/14 11:05 PM) Lymphocytes 41.5 % [20.0-40.0 %] *HI* (05/12/14 11:05 PM) Monocytes [2.0-12.0 6.3 % %] (05/12/14 11:05 PM) Eosinophils [0.0-4.0 1.0 % %] (05/12/14 11:05 PM) Basophils [0.0-1.0 1.0 % %] (05/12/14 11:05 PM) Segs-Bands # 3.6 K/CMM [1.5-8.1 K/CMM] (05/12/14 11:05 PM) Lymphocytes # 3.0 K/CMM [1.0-5.5 K/CMM] (05/12/14 11:05 PM) Monocytes # [0.0-0.8 0.4 K/CMM K/CMM] (05/12/14 11:05 PM) Eosinophils # 0.1 K/CMM [0.0-0.5 K/CMM] (05/12/14 11:05 PM) Basophils # [0.0-0.2 0.1 K/CMM K/CMM] (05/12/14 11:05 PM) Microcyte [None 1+ Seen] *ABN* (05/12/14 11:05 PM) Medications Administered During Your Visit No data available for this section Immunizations No data available for this section Procedures Procedure Type Body Site Date of Procedure Related Diagnosis Hernia
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
--- OUTSIDE RECORDS SUMMARY | 2018-09-18 13:18 | XMS REPORT | Summary of Care ---
Author Organization Unknown Address Unknown Phone Unavailable Encounter SHYANN Valdez(WALKER) [id number] Date(s): 10/15/14 - 10/15/14 [facility] [address] Final: Spotting Complicating , Antepartum Condition or Complication Final: Other Current Conditions Classifiable Elsewhere, Complicating , Childbirth, or the [place], Antepartum Condition or Complication Final: Backache, Unspecified Final: Headache Discharge Disposition: Home Physician Attending: Kyle Duarte MD Physician Admitting: Kyle Duarte MD Reason for Visit HIGH BLOOD PRESSURE Vital Signs 1 2 3 Most recent to oldest [Reference Range]: 165.1 cm (10/15/14 11:57 AM) Height 116 mmHg (10/15/14 12:45 PM) 121 mmHg (10/15/14 12:35 PM) 117 mmHg (10/15/14 12:25 PM) Systolic Blood Pressure [90-140 mmHg] 70 mmHg (10/15/14 12:45 PM) 71 mmHg (10/15/14 12:35 PM) 72 mmHg (10/15/14 12:25 PM) Diastolic Blood Pressure [60-90 mmHg] 84.091 kg (10/15/14 11:57 AM) Weight 30.85 m2 (10/15/14 11:57 AM) Body Mass Index Problem List Condition [...] Status morphine Active sulfa drugs Active Medications Macrobid 100 mg oral capsule 100 mg=1 cap, PO, BID, # 14 cap, 0 Refill(s) Start Date: 10/15/14 Stop Date: 10/22/14 Status: Ordered Medications Administered During Your Visit [...]
[2018-09-18 13:49] VITALS: BP 142/98
== END 2018-09-18 13:53 | disposition home or self-care (01) ==
LOC: FSED 13:13
DX: L03.113 Cellulitis of right upper limb (principal)
CPT/HCPCS: 99282